=== PATIENT | male | born 1945 | race Caucasian/White ===

== ENCOUNTER → 2024-07-05 | Outpatient (CLI) | payer MEDICARE, MEDICAID, SELFPAY ==
[2024-07-05 10:17] LABS: Anion Gap 8 (7-16); BUN/Creatinine Ratio 16 Ratio (12-20); Blood Urea Nitrogen 29 mg/dL (9-23); Calcium 10.7 mg/dL (8.3-10.6); Carbon Dioxide 30.2 mMol/L (20.0-31.0); Chloride 95 mMol/L (98-107); Creatinine (Component) 1.8 mg/dL (0.6-1.3); Glucose 119 mg/dL (74-106); Osmolality,Calculated 273 (275-295); Potassium 4.4 mMol/L (3.4-5.1); Sodium 133 mMol/L (136-145); eGFR 38 See Note
== END | disposition home or self-care (01) ==
PROVIDERS: PCP Nurse Practitioner Family; Referring Provider Internal Medicine Hematology & Oncology; Visit Provider Internal Medicine Hematology & Oncology
DX: C61 Malignant neoplasm of prostate (principal)
CPT/HCPCS: 36415; 80048

== ENCOUNTER 2024-07-12 08:14 | Outpatient (RCR) | payer MEDICARE, MEDICAID, SELFPAY ==
[2024-07-07 13:56] LABS: Basophils % (Auto) 0 % (0-2.5); Eosinophils % (Auto) 0 % (0-10); Hematocrit 35.1 % (41.0-53.0); Hemoglobin 12.2 g/dL (13.5-16.0); Immature Granulocytes % (Auto) 0 % (0-0); Immature Granulocytes Auto 0.04 Thou/mm3 (0.00-0.00); Lymphocytes # (Auto) 1.7 Thou/mm3 (1.0-4.8); Lymphocytes % (Auto) 19 % (10-50); Mean Corpuscular HGB Conc 34.8 g/dl (31.0-37.0); Mean Corpuscular Hemoglobin 31.4 pg (25.0-35.0); Mean Corpuscular Volume 90 fL (80-100); Monocytes # (Auto) 0.6 Thou/mm3 (0.0-0.8); Monocytes % (Auto) 7 % (0-12); Neutrophils # (Auto) 6.8 Thou/mm3 (1.8-7.7); Neutrophils % (Auto) 74 % (37-80); Nucleated Red Blood Cell % 0 /100 WBC (0); Platelet Count 234 Thou/mm3 (140-440); RDW Standard Deviation 43.8 fL (35.1-43.9); Red Blood Count 3.89 Miln/mm3 (4.50-5.90); White Blood Count 9.3 Thou/mm3 (3.8-10.6)
[2024-07-07 14:37] LABS: Prostate Specific Antigen 0.21 ng/mL (0-4.00)
[2024-07-07 14:38] LABS: Alanine Aminotransferase 11 U/L (10-49); Albumin, Serum 4.7 gm/dL (3.4-4.8); Albumin/Globulin Ratio 1.6 (1.2-2.2); Alkaline Phosphatase 89 U/L (46-116); Anion Gap 5 (7-16); Aspartate Amino Transferase 20 U/L (0-34); BUN/Creatinine Ratio 17 Ratio (12-20); Bilirubin,Total 1.1 mg/dL (0.3-1.2); Blood Urea Nitrogen 27 mg/dL (9-23); Calcium 9.8 mg/dL (8.3-10.6); Calcium (Corrected) 9.8 mg/dL (8.5-10.1); Carbon Dioxide 28.2 mMol/L (20.0-31.0); Chloride 96 mMol/L (98-107); Creatinine (Component) 1.6 mg/dL (0.6-1.3); Globulin 2.9 gm/dL (2.3-3.5); Glucose 109 mg/dL (74-106); Osmolality,Calculated 265 (275-295); Potassium 4.4 mMol/L (3.4-5.1); Sodium 129 mMol/L (136-145); Total Protein 7.6 gm/dL (5.7-8.2); eGFR 44 See Note
== END 2024-07-23 23:59 | disposition home or self-care (01) ==
LOC: SCTC 08:14
PROVIDERS: Internal Medicine Hematology & Oncology; PCP Internal Medicine; Referring Provider Internal Medicine; Visit Provider Radiology Therapeutic Radiology
DX: Z51.11 Encounter for antineoplastic chemotherapy (principal); C61 Malignant neoplasm of prostate; C79.51 Secondary malignant neoplasm of bone; Z90.79 Acquired absence of other genital organ(s); Z92.3 Personal history of irradiation
CPT/HCPCS: 80053; 84153; 85025; 96365; 96367; 96402; 99212; 99213; J3489; J9217; G0463

== ENCOUNTER → 2024-07-26 | Outpatient (BNVA) | payer MEDICARE, MEDICAID, SELFPAY | END | disposition home or self-care (01) | PROVIDERS: PCP Nurse Practitioner Family; Referring Provider Nurse Practitioner Family; Visit Provider Physician Assistant | DX: N40.1 Benign prostatic hyperplasia with lower urinary tract symptoms (principal); C61 Malignant neoplasm of prostate | CPT/HCPCS: Q3014 ==

== ENCOUNTER → 2024-10-04 | Outpatient (CLI) | payer MEDICARE, MEDICAID, SELFPAY ==
[2024-10-04 09:29] LABS: Anion Gap 4 (7-16); BUN/Creatinine Ratio 22 Ratio (12-20); Blood Urea Nitrogen 26 mg/dL (9-23); Calcium 9.7 mg/dL (8.3-10.6); Carbon Dioxide 30.6 mMol/L (20.0-31.0); Chloride 106 mMol/L (98-107); Creatinine (Component) 1.2 mg/dL (0.6-1.3); Glucose 68 mg/dL (74-106); Osmolality,Calculated 283 (275-295); Potassium 3.7 mMol/L (3.4-5.1); Sodium 141 mMol/L (136-145); eGFR > 60 See Note
== END | disposition home or self-care (01) ==
LOC: SCTO 07:40
PROVIDERS: PCP Internal Medicine; Referring Provider Internal Medicine Hematology & Oncology; Visit Provider Internal Medicine Hematology & Oncology
DX: C61 Malignant neoplasm of prostate (principal)
CPT/HCPCS: 36415; 80048

== ENCOUNTER 2024-10-12 07:38 | Outpatient (RCR) | payer MEDICARE, MEDICAID, SELFPAY | END 2024-10-21 23:59 | disposition home or self-care (01) | LOC: SCTC 07:38 | PROVIDERS: Internal Medicine Hematology & Oncology; PCP Internal Medicine; Referring Provider Internal Medicine; Visit Provider Radiology Therapeutic Radiology | DX: Z51.11 Encounter for antineoplastic chemotherapy (principal); C61 Malignant neoplasm of prostate; C79.51 Secondary malignant neoplasm of bone; Z19.2 Hormone resistant malignancy status; Z92.3 Personal history of irradiation | CPT/HCPCS: 96365; 96402; 99213; J3489; J9217; G0463 ==

== ENCOUNTER → 2024-10-17 | Outpatient (BNVA) | payer MEDICARE, MEDICAID, SELFPAY | END | disposition home or self-care (01) | PROVIDERS: PCP Internal Medicine; Referring Provider Internal Medicine; Visit Provider Urology | DX: C61 Malignant neoplasm of prostate (principal); N13.30 Unspecified hydronephrosis; I25.10 Atherosclerotic heart disease of native coronary artery without angina pectoris; M89.8X8 Other specified disorders of bone, other site; K43.2 Incisional hernia without obstruction or gangrene; E66.9 Obesity, unspecified; Z68.28 Body mass index [BMI] 28.0-28.9, adult | CPT/HCPCS: 81003; 99212; G0463 ==

== ENCOUNTER 2024-11-03 10:41 | Outpatient (RCR) | payer MEDICARE, MEDICAID, SELFPAY ==
--- NOTE | 2024-11-27 17:13 | CTCFLWUP_ITS ---
Patient: ELIAS BUENO : 1945 Page 5 of 7 FOLLOW UP NOTE DATE OF SERVICE: 11/03/2024 NAME: ELIAS BUENO ACCOUNT: [id number] : 1945 AGE: 79 INTERVAL HISTORY: Doing well. No new PSA available. 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 PSA is slowly increasing. 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 Robotic radical prostatectomy was done on 12/06/2020. Patient had radiation therapy to the prostate bed due to rising PSA completed on 10/07/2021. PET/CT scan done on 01/10/2022 showed osteoblastic bone mets. Started on adjuvant Lupron on 09/20/2021. Increasing PSA first noted on 06/25/2023. PSA 07/07/2024 is 0.21 REASON FOR TODAY?S VISIT: Patient is known prostate cancer. Patient is doing well. PSA to have decreased to 0.20. Currently Mr. Bueno is on leuprolide, Zometa, Zytiga and prednisone. Tolerating them very well without any significant side effects. PSA has decreased to 0.20. Malignant neoplasm of prostate [ICD10] C61; Secondary malignant neoplasm of bone [ICD10] C79.51 DATE OF DIAGNOSIS: 08/12/2020 STAGE/TNM: Limited stage prostate cancer Presumed stage IV in 2021 and started on Zytiga and Lupron prednisone No biopsy done of the bone lesion to prove metastatic disease TREATMENT HISTORY: Care?Plan Start?Date Cycle Day Intent Zoledronic?Acid?4?mg 01/07/2024 1 90 Palliative HISTORY OF PRESENT ILLNESS: Elias Bueno is a 79-year-old ENG speaking male with following oncology history. 07/26/2020: Mr. Bueno had prostate biopsy done for lower urinary tract symptoms as well as an elevated PSA of 31.5. 08/30/2020: Bone scan? 12/06/2020: Mr. Bueno had robotic radical prostatectomy with extended lymph node dissection at [facility] 03/19/2021: PSA 0.46 05/07/2021: PSA 0.52 07/15/2021: PSA 0.49 08/12/2021 - 10/07/2021: Mr. Bueno underwent radiation therapy to the prostate bed 09/11/2021: PSA 0.48 09/20/2021: Mr. Bueno received first dose of adjuvant Lupron 11/26/2021: PSA less than 0.10 01/10/2022: PET CT scan done 10/02/2022: PSA less than 0.10 04/08/2023: PSA less than 0.10. 06/25/2023: PSA 0.12. 10/06/2023: PSA 0.15. 10/20/2023 PSA 0.17. 10/29/2023: PET/CT scan?no interval metastatic disease. 11/17/2023: Mr. Bueno is started on Zytiga 1 g as well as prednisone 5 mg p.o. daily along with Zometa 4 mg IV every 3 months. 01/01/2024: PSA 0.18 01/22/2024: Bone scan done 01/26/2024: CT scan of the abdomen and pelvis with IV contrast 02/16/2024: PSA 0.28. 05/16/2024: PSA 0.20. OTHER MEDICAL HISTORY/CONDITIONS: Prostate cancer - dx 07/26/20 Siezures HTN Atrial fibrillation Denies ?Clone Other Med Hx? FAMILY HISTORY: Cancer?History:?Denies Patient?denies?family?cancer?history. ?Clone Family Hx? 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 MEDICATIONS: 1. abiraterone - 500 mg 2 tab Daily 2. atorvastatin - 20 mg Daily 3. carvedilol - 3.125 mg 1 tab Twice a Day 4. Citracal - 500 mg 1 tab Twice a Day 5. cyanocobalamin (vitamin B-12) - 1,000 mcg 1 tab Daily 6. furosemide - 20 mg 1 tab Twice a Day 7. Gemtesa - 75 mg 1 tab Daily 8. Keppra - 500 mg 2 tab Twice a Day 9. losartan - 25 mg 1 tab Daily 10. prednisone - 5 mg 1 tab Daily 11. spironolactone - 25 mg 1 tab Daily 12. Vitamin D3 - 1,000 unit 1 tab Twice a Day 13. warfarin - 5 mg 1 tab Daily 14. warfarin - 4 mg 1 tab As directed?Palabra Meds? Medications Last Reconciled by Christina Garcia MA on 11/03/2024 ALLERGIES: No Known Drug Allergies REVIEW OF SYSTEMS: A complete 14-point review of systems was performed and is negative except as noted in interval history. PHYSICAL EXAMINATION:?CloneBlock PE? VITAL SIGNS: Temperature?98.8, B/P?115/76, Oxygen?Saturation?94% Weight?200?lbs (Change?since?10/12/24:?2?lbs) PAIN: 0 - No pain ECOG Performance Status: 0 - Asymptomatic and fully active EYE: Conjunctivae is white MOUTH: Oral cavity is dry. CHEST: Clear to auscultation. No wheezes or rales audible. CARDIAC: Rhythm regular, no murmurs or gallops present. ABDOMEN: Soft. No hepatomegaly. No splenomegaly. EXTREMITIES: No pedal edema or cyanosis. LABORATORY DATA: I have personally reviewed and interpreted each of the patient?s relevant lab tests, abnormal findings are below: Date 07/05/24 07/07/24 10/04/24 ??WHITE?BLOOD?COUNT?(Thou/mm3) ? 9.3 ? ??RED?BLOOD?COUNT?(Miln/mm3) ? 3.89?L ? ??HEMOGLOBIN?(gm/dl) ? 12.2?L ? ??HEMATOCRIT?(%) ? 35.1?L ? ??PLATELET?COUNT?(Thou/mm3) ? 234 ? ??NEUTROPHILS?%,?AUTO?(%) ? 74 ? ??LYMPH?%,?AUTO?(%) ? 19 ? ??NEUTROPHILS,?AUTO?(Thou/mm3) ? 6.8 ? ??GLUCOSE,RANDOM?(mg/dL) 119?H 109?H 68?L ??BLOOD?UREA?NITROGEN?(mg/dL) 29?H 27?H 26?H ??CREATININE?(mg/dL) 1.80?H 1.60?H 1.20 ??SODIUM?(mmol/L) 133?L 129?L 141 ??POTASSIUM?(mmol/L) 4.4 4.4 3.7 ??CHLORIDE?(mmol/L) 95?L 96?L 106 ??CrCl?(CandG)?(ml/min) 35.90 40.41 53.96 ??AST/SGOT?(Unit/L) ? 20 ? ??ALT/SGPT?(Unit/L) ? 11 ? ??ALKALINE?PHOSPHATASE?(Unit/L) ? 89 ? ??BILIRUBIN,?TOTAL?(mg/dL) ? 1.1 ? ??PROTEIN?TOTAL?(gm/dl) ? 7.6 ? ??ALBUMIN,?SERUM?(gm/dl) ? 4.7 ? ??GLOBULIN?(gm/dl) ? 2.9 ? ??ALBUMIN/GLOBULIN?RATIO ? 1.6 ? ??CALCIUM,?SERUM?(mg/dL) 10.7?H 9.8 9.7 ??CALCIUM?SERUM?(CORRECTED)?(mg/dL) ? 9.8 ? ASSESSMENT/PLAN: 1. Prostatic adenocarcinoma diagnosed on 08/22/2020 2. Robotic radical prostatectomy was done on 12/06/2020 3. Had radiation therapy to the prostate bed due to rising PSA completed on 10/07/[address] scan on 01/10/2022 showed osteoblastic bone lesions 5. Patient started on adjuvant Lupron on 09/20/2021 Increasing PSA first noted in June 2023 PSA has been less than 1 continue Lupron, Zytiga and prednisone for now continue Zometa 4 mg IV every 3 months. Continue Citracal. I will see him back in the clinic in 4 months with CBC, CMP as well as PSA done prior to the visit. Will do PSMA scan to see if patient have really any activity of the prostatic cancer There has never been biopsy I would like to do a bone biopsy if any active lesion Asked to see after the PSMA scan ORDERS: Order # Description [id number] Basic Metabolic Panel [id number] Lab Appointment [id number] Infusion 1 Hour [id number] Basic Metabolic Panel [id number] Lab Appointment [id number] Infusion 1 Hour [id number] Basic Metabolic Panel [id number] Lab Appointment [id number] Infusion 1 Hour [id number] Basic Metabolic Panel [id number] Lab Appointment [id number] Infusion 1 Hour [id number] Basic Metabolic Panel [id number] Lab Appointment [id number] Infusion 1 Hour [id number] Basic Metabolic Panel [id number] Lab Appointment [id number] Infusion 1 Hour [id number] Basic Metabolic Panel [id number] Lab Appointment [id number] Infusion 1 Hour [id number] Basic Metabolic Panel [id number] Lab Appointment [id number] Infusion 1 Hour [id number] Basic Metabolic Panel [id number] Lab Appointment RETURN TO CLINIC: I will see him back in the clinic in 3 months. BILLING AND COMPLIANCE: I reviewed external records from providers outside my specialty as summarized above. I spent a total of 50 minutes on this patient?s care on the day of their visit excluding time spent related to any billed procedures. This time includes time spent with the patient as well as time spent documenting in the medical record, reviewing patients records and tests, obtaining history, placing orders, communicating with other healthcare professionals, counseling the patient, family or caregiver, and/or care coordination for the diagnoses above. Electronically Signed by: Jabier Graff MD T: 5:11 PM CC: Kyaw?([email or web address]),? PCP: Jabier Graff Referring: Jabier Graff This document was completed utilizing speech recognition software. Grammatical errors, random word insertions, pronoun errors, and incomplete sentences are an occasional consequence of this system due to software limitations, ambient noise, and hardware issues. Any formal questions or concerns about the content, text or information contained within the body of this dictation should be directly addressed to the provider for clarification.
== END 2024-11-21 23:59 | disposition home or self-care (01) ==
LOC: SCTC 10:41
PROVIDERS: PCP Nurse Practitioner Family; Referring Provider Internal Medicine Hematology & Oncology; Visit Provider Internal Medicine Hematology & Oncology
DX: C61 Malignant neoplasm of prostate (principal); C79.51 Secondary malignant neoplasm of bone; Z90.79 Acquired absence of other genital organ(s); Z79.818 Long term (current) use of other agents affecting estrogen receptors and estrogen levels; Z92.3 Personal history of irradiation; Z19.2 Hormone resistant malignancy status
CPT/HCPCS: 99212; G0463

== ENCOUNTER → 2024-11-04 | Outpatient (CLI) | payer MEDICARE, MEDICAID, SELFPAY | END | disposition home or self-care (01) | PROVIDERS: PCP Nurse Practitioner Family; Referring Provider Internal Medicine Hematology & Oncology; Visit Provider Internal Medicine Hematology & Oncology | DX: C61 Malignant neoplasm of prostate (principal); C79.51 Secondary malignant neoplasm of bone | CPT/HCPCS: 36415; 84153 ==

== ENCOUNTER → 2024-12-06 | Outpatient (CLI) | payer MEDICARE, MEDICAID, SELFPAY ==
--- NOTE | 2024-12-06 12:30 | XR_ITS ---
Examination: Nuclear medicine kidney imaging flow and function multiple studies Exam date and time: December 06, 2024 1244 hours INDICATIONS: Prostatectomy 4 years ago post radiation therapy chemotherapy technique and findings: Intravenous administration 10.3 mCi technetium 99m MAG3 There are series of 117 and long-term images which demonstrate significant left hydronephrosis IMPRESSION: Limited study Significant left hydronephrosis
[2024-12-06 13:35] VITALS: BP 104/54; PULSE 83; RESP 16; O2SAT 98
[2024-12-06] MEDS: FUROSEMIDE INJ 10 MG/ML 4ML VIAL 40 MG IVP (13:35)
[2024-12-06 13:45] VITALS: BP 97/72; PULSE 80; RESP 19; O2SAT 100
== END | disposition home or self-care (01) ==
PROVIDERS: Referring Provider Urology; Visit Provider Urology
DX: N13.30 Unspecified hydronephrosis (principal)
CPT/HCPCS: 78709; A9562; J1938

== ENCOUNTER → 2024-12-27 | Outpatient (CLI) | payer MEDICARE, MEDICAID, SELFPAY | END | disposition home or self-care (01) | PROVIDERS: Referring Provider Urology; Visit Provider Urology | DX: N39.0 Urinary tract infection, site not specified (principal) | CPT/HCPCS: 87077; 87086; 87186 ==

== ENCOUNTER → 2024-12-27 | Outpatient (BNVA) | payer MEDICARE, MEDICAID, SELFPAY | END | disposition home or self-care (01) | PROVIDERS: Visit Provider Urology | DX: C61 Malignant neoplasm of prostate (principal); M89.9 Disorder of bone, unspecified; N13.30 Unspecified hydronephrosis; N39.0 Urinary tract infection, site not specified | CPT/HCPCS: 51701; 81003; 99212; J1580; G0463 ==

== ENCOUNTER 2025-01-03 13:01 | Outpatient (RCR) | payer MEDICARE, MEDICAID, SELFPAY | END 2025-01-21 23:59 | disposition home or self-care (01) | LOC: SCTC 13:01 | PROVIDERS: PCP Nurse Practitioner Family; Referring Provider Internal Medicine Hematology & Oncology; Visit Provider Internal Medicine Hematology & Oncology | DX: C61 Malignant neoplasm of prostate (principal); Z19.2 Hormone resistant malignancy status; Z90.79 Acquired absence of other genital organ(s); Z92.3 Personal history of irradiation; M89.9 Disorder of bone, unspecified | CPT/HCPCS: 96365; J3489; J7040 ==

== ENCOUNTER 2025-01-04 09:50 | Day surgery (SDC) | payer MEDICARE, MEDICAID, SELFPAY ==
[2025-01-03 11:43] VITALS: BMI 30.4
--- NOTE | 2025-01-03 12:00 | EKG_ITS ---
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
[2025-01-03 13:42] LABS: INR 1.5 (0.9-1.3); Partial Thromboplastin Time 39.1 Seconds (22.0-36.0); Prothrombin Time 15.9 Seconds (9.0-12.2)
--- NOTE | 2025-01-03 13:50 | SUR.PREOP ---
Cardiac history and records reviewed with Dr Hale.
[2025-01-03 13:51] LABS: Alanine Aminotransferase 15 U/L (10-49); Albumin, Serum 4.7 gm/dL (3.4-4.8); Albumin/Globulin Ratio 1.7 (1.2-2.2); Alkaline Phosphatase 73 U/L (46-116); Anion Gap 9 (7-16); Aspartate Amino Transferase 21 U/L (0-34); BUN/Creatinine Ratio 12 Ratio (12-20); Blood Urea Nitrogen 17 mg/dL (9-23); Calcium 9.6 mg/dL (8.3-10.6); Calcium (Corrected) 9.6 mg/dL (8.5-10.1); Carbon Dioxide 29.5 mMol/L (20.0-31.0); Chloride 96 mMol/L (98-107); Creatinine (Component) 1.4 mg/dL (0.6-1.3); Estimated Creatinine Clearance 46.8 mL/min (>60); Globulin 2.7 gm/dL (2.3-3.5); Glucose 119 mg/dL (74-106); Osmolality,Calculated 270 (275-295); Potassium 3.3 mMol/L (3.4-5.1); Sodium 134 mMol/L (136-145); Total Protein 7.4 gm/dL (5.7-8.2); eGFR 51 See Note
[2025-01-04] VITALS (7 sets, daily range): BP systolic 107–136; BP diastolic 51–83; PULSE 78–86; RESP 13–20; TEMP 36.2–36.7; O2SAT 96–100; BMI 30.2
--- NOTE | 2025-01-04 11:45 | XR_ITS ---
Examination: Fluoroscopy AP abdomen single view Date and time: January 04, 2025 1403 hours INDICATIONS: Mild to moderate right hydronephrosis on CT abdomen study January 26, 2024 TECHNIQUE AND FINDINGS: Single AP abdomen film Fluoroscopy 1 seconds radiation dose 0.128 milligray IMPRESSION: Single abdomen film
--- NOTE | 2025-01-04 14:18 | SUR.PHASEI ---
1418 Patient arrived to recovery resting comfortably in [facility], drowsy and talking with staff, on oxygen 8L via oxy mask, breathing unlabored, vital signs stable, denies pain and nasuea, 16f marino catheter in place with leg secure; draining to gravity, report received from Dr. Benedict and Abhijit RN
--- NOTE | 2025-01-04 14:21 | ESOP_ITS ---
Date of Procedure 01/04/25 Pre Op Diagnosis Metastatic prostate cancer, s/p radical prostatectomy s/p radiation treatment and hormonal manipulation, right hydronephrosis Post Op Diagnosis Same plus bladder neck contracture right ureteral orifice not identified, Procedure Cystoscopic examination Findings Bladder neck contracture right ureteral orifice not identified course of bladder trabeculation multiple shallow diverticuli Procedure Description Indication for procedure this is a 79-year-old gentleman he was diagnosed with high-grade high risk prostate cancer he had a radical prostatectomy. Patient had biochemical relapse after radiation treatment and hormonal manipulation he was recommended cystoscopy retrograde placement of right ureteral stent procedure and complications were discussed with the patient in great detail informed consent is obtained Patient was brought to the operating room in a satisfactory condition after ap propriate premedication was put on the operating table in a spine position he was appropriately identified by surgeon and operating room staff general anesthesia was given uneventfully patient was positioned in dorsolithotomy position parts were prepped and draped in the usual sterile fashion patient received preoperative antibiotics 21 cystoscope was used to do the cystourethroscopy examination of urethra was without any stricture prostatic urethra status post radical prostatectomy bladder neck revealed bladder neck contracture I was able to negotiate with the scope and dilated. Inside of the bladder in all the quadrant was carried out there were coarse bladder trabeculation with multiple shallow diverticuli. Ureteral orifice on the right side was not visible I gave methylene blue and there was no urine coming out of the right side. There was faint blue tinge urine coming out of the left ureteral orifice multiple attempts were made to identified right ureteral orifice but in the end right ureteral orifice was not identified. At this time I remove the cystoscope #16 Ortez catheter was inserted patient after having tolerated the procedure well was sent to recovery room in a satisfactory condition to be discharged home to be followed in urology office patient is going to need percutaneous nephrostomy right side and placement of ureters ureteral stent in a antegrade fashion. Anesthesia GETA Pathology / specimen None Estimated Blood Loss 2.0 Condition Stable Disposition PACU Surgeon Yanna Collins MD Surgical Staff Operation Date: 01/04/25 12:00 Case Staff Anesthesiologist: Jose Benedict
--- NOTE | 2025-01-04 15:16 | SUR.PHASEII ---
1516 Patient meets discharge criteria from recovery, awake and alert, breathing unlabored, vital signs stable, denies pain and nausea, drinking water, patient assisted with dressing into his clothing by this brief writer and his personal carer, discharge instructions and how to discontinue Ortez catheter given to patient and patients caregiver, caregiver signed discharge instructions. Patient given all his belongings prior to discharge, transported via wheelchair and left in a private vehicle.
== END 2025-01-04 15:16 | disposition home or self-care (01) ==
PROVIDERS: Anesthesiology; PCP Internal Medicine; Referring Provider Urology; Visit Provider Urology
PROC: 0TJB8ZZ Inspection of Bladder, Via Natural or Artificial Opening Endoscopic (ICD-10-PCS; CPT 52000; principal; 2025-01-04 11:45)
DX: N13.30 Unspecified hydronephrosis (principal); N32.89 Other specified disorders of bladder; Z90.79 Acquired absence of other genital organ(s); Z92.3 Personal history of irradiation; Z85.46 Personal history of malignant neoplasm of prostate; Z01.810 Encounter for preprocedural cardiovascular examination
CPT/HCPCS: 52332; 36415; 74420; 80053; 85610; 85730; 93005; A4217; A4649; C1769; C1894; C2617; J0461; J1100; J1580; J1938; J2250; J2371; J2405; J3010; J3490; Q9968

== ENCOUNTER 2025-01-07 08:22 | Emergency (ER) | payer OTHER, MEDICAID, SELFPAY ==
[2025-01-07 08:49] VITALS: BP 102/59; PULSE 80; RESP 17; TEMP 36.4; O2SAT 99
[2025-01-07 08:50] VITALS: BMI 30.2
--- NOTE | 2025-01-07 08:59 | PD.EDMALE ---
ED Male Genitalurinary RME/HPI General Chief complaint: Urogenital-Male Stated complaint: CATHETER NEEDS TO BE REMOVED PER DR GARNICA Time Seen by Provider: 01/07/25 08:42 Arrival date/time: 01/07/25 08:22 This is a 79-year-old male that comes into the emergency room with complaints of wanting urinary catheter removed. Patient states he has no complaints. Patient states he was told to come to the emergency room to have catheter removed. Related Data Home Medications ?Medication ?Instructions ?Recorded ?Confirmed furosemide 20 mg tablet (Lasix) 20 mg PO BID 04/20/20 01/03/25 warfarin 5 mg tablet (Coumadin) 5 mg PO QDAY 04/20/20 01/03/25 aspirin 81 mg tablet,delayed 81 mg PO QDAY 04/01/21 01/03/25 release atorvastatin 20 mg tablet 20 mg PO HS 04/01/21 01/03/25 carvedilol 3.125 mg tablet 3.125 mg PO BID 11/12/21 01/03/25 spironolactone 25 mg tablet 25 mg PO QDAY 12/23/22 01/03/25 vibegron 75 mg tablet (Gemtesa) 75 mg PO QDAY 09/28/23 01/03/25 abiraterone 500 mg tablet 1,000 mg PO QDAY 01/03/25 01/03/25 cholecalciferol (vitamin D3) 25 25 mcg PO QDAY 01/03/25 01/03/25 mcg (1,000 unit) tablet (Vitamin D3) enoxaparin 100 mg/mL subcutaneous 200 mg subcut QDAY 01/03/25 01/03/25 syringe (Lovenox) levetiracetam 500 mg tablet 1,000 mg PO BID 01/03/25 01/03/25 (Keppra) losartan 25 mg tablet 25 mg PO DAILY 01/03/25 01/03/25 prednisone 5 mg tablet 5 mg PO QDAY 01/03/25 01/03/25 Previous Rx's ?Medication ?Instructions ?Recorded tramadol 50 mg tablet 50 mg PO Q8H PRN pain #14 tabs 01/04/25 Allergies Allergy/AdvReac Type Severity Reaction Status Date / Time No Known Allergies Allergy Verified 01/07/25 08:27 Review of Systems Review of Systems Systems Reviewed: All systems reviewed, normal except as documented Past Medical History Past Medical History Comments PMH COMMENT: none ED Exam General General appearance: Present alert and in no apparent distress Head Head exam: Present atraumatic Eye Eye exam: Present normal appearance, PERRL and EOMI ENT ENT exam: Present normal exam, normal oropharynx and mucous membranes moist Neck Neck exam: Present normal inspection, full ROM and trachea midline Chest Chest inspection: Present normal inspection and symmetric chest wall rise Respiratory Respiratory exam: Present other (breathing even and unlabored ) Cardiovascular Cardiovascular exam: Present regular rate and other (cap refill less than 2 seconds ) Abdominal Exam Abdominal exam: Present soft Extremities Exam Extremities exam: Present normal inspection and full ROM Back Exam Back exam: Present normal inspection and full ROM Neurological Exam Neurological exam: Present alert and oriented X3 Psychiatric Psychiatric exam: Present normal affect and normal mood Skin Skin exam: Present warm, dry, intact and normal color Course Quality Measures none Vital Signs Vital signs: Vital Signs Temperature 97.5 F 01/07/25 08:49 Pulse Rate 80 01/07/25 08:49 Respiratory Rate 17 01/07/25 08:49 Blood Pressure 102/59 L 01/07/25 08:49 Pulse Oximetry (%) 99 01/07/25 08:49 Oxygen Delivery Method Room Air 01/07/25 08:49 Urogenital - Male MDM Narrative MDM Narrative:: Looked over patient's discharge paperwork and per paperwork patient is to have Marino catheter removed in 3 days. hx of Metastatic prostate cancer, s/p radical prostatectomy s/p radiation treatment and hormonal manipulation, right hydronephrosis. Patient has no other complaints at this time. Patient told to come back to the emergency room if he starts feeling like he cannot urinate. I spoke to patient at length about this. Patient verbalized understanding. Patient told to follow-up with primary provider in 1 to 2 days. Come back to the emergency room symptoms change or worsen Patient data External records reviewed:: [facility] previous records Clinical information provided by:: patient Social determinants that could affect healthcare access:: none Patient has the following chronic illnesses:: see note How is presenting disease/condition affected by chronic disease/condition?: uneffected by Evaluation data The following diagnostics were reviewed and interpreted by me:: other (specify) (none ) Lab and/or radiology exams considered but not ordered:: none Interpretation Summary: see note Medications / Prescriptions Medications or Prescriptions considered but not ordered:: none Medication administrations:: none Consultations Consultation(s) initiated? (list below): No Diagnosis Urogenital Male Differential Diagnosis: urinary tract infection and other (urinary retention, hematuria ) Most likely diagnosis given after review of the tests above:: marino cath needing to be removed s/p procedure Admission Indicated Admission indicated?: not indicated Admission Request Was there a request for admission?: No Disposition Plan Disposition Plan: Discharge Discharge Attestation Discharge Attestation: The patient and all family members were given an opportunity to ask questions and understood the discharge instructions. Discharge instructions specifically effects, indications for sooner follow up or return to the emergency department, and the expected course of current diagnosis. Patient condition: Stable Discharge Plan Plan Patient Disposition: HOME (Self Care) Patient condition on transfer: Stable Prescriptions/Referrals Prescriptions/Med Rec: No Action aspirin 81 mg tablet,delayed release (DR/EC) 81 mg PO QDAY atorvastatin 20 mg tablet 20 mg PO HS warfarin [Coumadin] 5 mg tablet 5 mg PO QDAY furosemide [Lasix] 20 mg tablet 20 mg PO BID carvedilol 3.125 mg tablet 3.125 mg PO BID Rx Instructions: must administer with a meal/food spironolactone 25 mg tablet 25 mg PO QDAY Gemtesa 75 mg tablet 75 mg PO QDAY abiraterone 500 mg tablet 1,000 mg PO QDAY Rx Instructions: must be taken on empty stomach, at least 1 hr before or 2 hrs after a meal/food prednisone 5 mg tablet 5 mg PO QDAY losartan 25 mg tablet 25 mg PO DAILY Patient Comments: TAKE 1 TABLET BY MOUTH DAILY FOR HIGH BLOOD PRESSURE levetiracetam [Keppra] 500 mg tablet 1,000 mg PO BID cholecalciferol (vitamin D3) [Vitamin D3] 25 mcg (1,000 unit) tablet 25 mcg PO QDAY enoxaparin [Lovenox] 100 mg/mL syringe 200 mg subcut QDAY tramadol 50 mg tablet 50 mg PO Q8H PRN (Reason: pain) Qty: 14 0RF Problem List Clinical Impression: Encounter for Marino catheter removal Patient/Caregiver Discharge Instructions Discharge Activity: activity as tolerated Education Materials: Marino Catheter Removal Additional Instructions: Follow up with primary provider in 1-2 days. Come back to ED if symptoms change or worsen Print Language: [place] Rican Stand Alone Forms: Tika Award Info., Patient Portal Info Letter PA/TANK REFINISHER Supervising Physician PA/TANK REFINISHER Supervising Physician: lata
== END 2025-01-07 09:15 | disposition home or self-care (01) ==
LOC: SERX 09:16
PROVIDERS: Emergency Provider Emergency Medicine; PCP Nurse Practitioner Family
DX: Z46.6 Encounter for fitting and adjustment of urinary device (principal)
CPT/HCPCS: 99282

== ENCOUNTER → 2025-02-06 | Outpatient (BNVA) | payer MEDICARE, MEDICAID, SELFPAY | END | disposition home or self-care (01) | PROVIDERS: PCP Nurse Practitioner Family; Referring Provider Nurse Practitioner Family; Visit Provider Urology | DX: C61 Malignant neoplasm of prostate (principal); N13.30 Unspecified hydronephrosis; M89.9 Disorder of bone, unspecified; Z87.440 Personal history of urinary (tract) infections; Z92.3 Personal history of irradiation; I25.10 Atherosclerotic heart disease of native coronary artery without angina pectoris; I11.0 Hypertensive heart disease with heart failure; I50.9 Heart failure, unspecified | CPT/HCPCS: 81003; 99212; G0463 ==

== ENCOUNTER 2025-02-10 10:41 | Outpatient (RCR) | payer MEDICARE, MEDICAID, SELFPAY ==
--- NOTE | 2025-02-09 11:17 | CTCFLWUP_ITS ---
Patient: ELIAS ABURTO : 1945 Page 2 of 2 FOLLOW UP NOTE DATE OF SERVICE: 02/09/2025 NAME: ELIAS ABURTO ACCOUNT: [id number] : 1945 AGE: 79 INTERVAL HISTORY: Doing well. Last PSA from October 2024 was 0.5. 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 PSA is slowly increasing. 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 Robotic radical prostatectomy was done on 12/06/2020. Patient had radiation therapy to the prostate bed due to rising PSA completed on 10/07/2021. PET/CT scan done on 01/10/2022 showed osteoblastic bone mets. Started on adjuvant Lupron on 09/20/2021. Increasing PSA first noted on 06/25/2023. PSA 07/07/2024 is 0.21 01/12/2025 PSMA PET scan showed sclerotic bone lesions involving T9 T9 T11 and L2-L3 and L4 vertebral bodies and left ischial tuberosity are identified with increased radiotracer uptake, maximum SUV SUV of up to 32.4 compatible with a sclerotic bony metastasis #2 prostatectomy is noted no abnormal focal increased radiotracer uptake in the prostatic bladder bed or pelvis #3 no evidence of PSMA avid pulmonary hepatic or alana mets #4 compression fracture of L1 and L2 vertebrae with mild vertebral body height loss and anterior wedging of unknown chronicity REASON FOR TODAY?S VISIT: Patient is known prostate cancer. Patient is doing well. PSA to have decreased to 0.20. Currently Mr. Aburto is on leuprolide, Zometa, Zytiga and prednisone. Tolerating them very well without any significant side effects. PSA has decreased to 0.20. Malignant neoplasm of prostate [ICD10] C61; Secondary malignant neoplasm of bone [ICD10] C79.51 DATE OF DIAGNOSIS: 08/12/2020 STAGE/TNM: Limited stage prostate cancer Presumed stage IV in 2021 and started on Zytiga and Lupron prednisone No biopsy done of the bone lesion to prove metastatic disease TREATMENT HISTORY: Care?Plan Start?Date Cycle Day Intent Zoledronic?Acid?4?mg 01/07/2024 1 90 Palliative Lupron?22.5?mg?q?3?mon 02/09/2025 1 90 Maintenance HISTORY OF PRESENT ILLNESS: Elias Aburto is a 79-year-old ENG speaking male with following oncology history. 07/26/2020: Mr. Aburto had prostate biopsy done for lower urinary tract symptoms as well as an elevated PSA of 31.5. 08/30/2020: Bone scan? 12/06/2020: Mr. Aburto had robotic radical prostatectomy with extended lymph node dissection at [facility] 03/19/2021: PSA 0.46 05/07/2021: PSA 0.52 07/15/2021: PSA 0.49 08/12/2021 - 10/07/2021: Mr. Aburto underwent radiation therapy to the prostate bed 09/11/2021: PSA 0.48 09/20/2021: Mr. Aburto received first dose of adjuvant Lupron 11/26/2021: PSA less than 0.10 01/10/2022: PET CT scan done 10/02/2022: PSA less than 0.10 04/08/2023: PSA less than 0.10. 06/25/2023: PSA 0.12. 10/06/2023: PSA 0.15. 10/20/2023 PSA 0.17. 10/29/2023: PET/CT scan?no interval metastatic disease. 11/17/2023: Mr. Aburto is started on Zytiga 1 g as well as prednisone 5 mg p.o. daily along with Zometa 4 mg IV every 3 months. 01/01/2024: PSA 0.18 01/22/2024: Bone scan done 01/26/2024: CT scan of the abdomen and pelvis with IV contrast 02/16/2024: PSA 0.28. 05/16/2024: PSA 0.20. OTHER MEDICAL HISTORY/CONDITIONS: Prostate cancer - dx 07/26/20 Siezures HTN Atrial fibrillation Denies FAMILY HISTORY: Cancer?History:?Denies Patient?denies?family?cancer?history. 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 abiraterone - 500 mg 2 tab Daily 2. atorvastatin - 20 mg Daily 3. carvedilol - 3.125 mg 1 tab Twice a Day 4. Citracal - 500 mg 1 tab Twice a Day 5. cyanocobalamin (vitamin B-12) - 1,000 mcg 1 tab Daily 6. furosemide - 20 mg 1 tab Twice a Day 7. Gemtesa - 75 mg 1 tab Daily 8. Keppra - 500 mg 2 tab Twice a Day 9. losartan - 25 mg 1 tab Daily 10. prednisone - 5 mg 1 tab Daily 11. spironolactone - 25 mg 1 tab Daily 12. Vitamin D3 - 1,000 unit 1 tab Twice a Day 13. warfarin - 5 mg 1 tab Daily 14. warfarin - 4 mg 1 tab As directed Medications Last Reconciled by Christina Garcia MA on 11/03/2024 ALLERGIES: No Known Drug Allergies REVIEW OF SYSTEMS: A complete 14-point review of systems was performed and is negative except as noted in interval history. PHYSICAL EXAMINATION: VITAL SIGNS: PAIN: 0 - No pain ECOG Performance Status: 0 - Asymptomatic and fully active EYE: Conjunctivae is white MOUTH: Oral cavity is dry. CHEST: Clear to auscultation. No wheezes or rales audible. CARDIAC: Rhythm regular, no murmurs or gallops present. ABDOMEN: Soft. No hepatomegaly. No splenomegaly. EXTREMITIES: No pedal edema or cyanosis. LABORATORY DATA: I have personally reviewed and interpreted each of the patient?s relevant lab tests, abnormal findings are below: Date 07/07/24 10/04/24 01/03/25 ??WHITE?BLOOD?COUNT?(Thou/mm3) 9.3 ?RED?BLOOD?COUNT?(Miln/mm3) 3.89?L ?HEMOGLOBIN?(gm/dl) 12.2?L ?HEMATOCRIT?(%) 35.1?L ?PLATELET?COUNT?(Thou/mm3) 234 ?NEUTROPHILS?%,?AUTO?(%) 74 ?LYMPH?%,?AUTO?(%) 19 ?NEUTROPHILS,?AUTO?(Thou/mm3) 6.8 ?GLUCOSE,RANDOM?(mg/dL) 109?H 68?L 119?H ??BLOOD?UREA?NITROGEN?(mg/dL) 27?H 26?H 17 ??CREATININE?(mg/dL) 1.60?H 1.20 1.40?H ??SODIUM?(mmol/L) 129?L 141 134?L ??POTASSIUM?(mmol/L) 4.4 3.7 3.3?L ??CHLORIDE?(mmol/L) 96?L 106 96?L ??CrCl?(CandG)?(ml/min) 40.41 53.96 46.36 ??AST/SGOT?(Unit/L) 20 ? 21 ??ALT/SGPT?(Unit/L) 11 ? 15 ??ALKALINE?PHOSPHATASE?(Unit/L) 89 ? 73 ??BILIRUBIN,?TOTAL?(mg/dL) 1.1 ? 1.0 ??PROTEIN?TOTAL?(gm/dl) 7.6 ? 7.4 ??ALBUMIN,?SERUM?(gm/dl) 4.7 ? 4.7 ??GLOBULIN?(gm/dl) 2.9 ? 2.7 ??ALBUMIN/GLOBULIN?RATIO 1.6 ? 1.7 ??CALCIUM,?SERUM?(mg/dL) 9.8 9.7 9.6 ??CALCIUM?SERUM?(CORRECTED)?(mg/dL) 9.8 ? 9.6 ASSESSMENT/PLAN: 1. Prostatic adenocarcinoma diagnosed on 08/22/2020 2. Robotic radical prostatectomy was done on 12/06/2020 3. Had radiation therapy to the prostate bed due to rising PSA completed on 10/07/[address] scan on 01/10/2022 showed osteoblastic bone lesions 5. Patient started on adjuvant Lupron on 09/20/2021 Increasing PSA first noted in June 2023 PSA has been less than 1 continue Lupron, Zytiga and prednisone for now continue Zometa 4 mg IV every 3 months. Continue Citracal. Patient has missed his Lupron injection which was due in December 2024 Sent a message to the pediatric clinical nurse specialist as well as informed nurses to give appointment with Mr. Aburto to start Extensively counseled patient that he needs a Lupron injection every 3 months and need appointment Patient advised to continue Zytiga prednisone and Lupron RTC in 2 months ORDERS: Order # Description [id number] Comprehensive Metabolic Panel - 12 + CBC with Auto Diff + PSA [id number] MD Follow Up 2 Months RETURN TO CLINIC: BILLING AND COMPLIANCE: I reviewed external records from providers outside my specialty as summarized above. I spent a total of 50 minutes on this patient?s care on the day of their visit excluding time spent related to any billed procedures. This time includes time spent with the patient as well as time spent documenting in the medical record, reviewing patients records and tests, obtaining history, placing orders, communicating with other healthcare professionals, counseling the patient, family or caregiver, and/or care coordination for the diagnoses above. Electronically Signed by: Jabier Graff MD T: 11:14 AM CC: Kyaw?([email or web address]),? PCP: Shantelle Beck Referring: Shantelle Beck This document was completed utilizing speech recognition software. Grammatical errors, random word insertions, pronoun errors, and incomplete sentences are an occasional consequence of this system due to software limitations, ambient noise, and hardware issues. Any formal questions or concerns about the content, text or information contained within the body of this dictation should be directly addressed to the provider for clarification.
== END 2025-02-20 23:59 | disposition home or self-care (01) ==
LOC: SCTC 10:41
PROVIDERS: PCP Nurse Practitioner Family; Referring Provider Nurse Practitioner Family; Visit Provider Internal Medicine Hematology & Oncology
DX: Z51.11 Encounter for antineoplastic chemotherapy (principal); C61 Malignant neoplasm of prostate; C79.51 Secondary malignant neoplasm of bone; Z19.2 Hormone resistant malignancy status; Z90.79 Acquired absence of other genital organ(s); Z92.3 Personal history of irradiation
CPT/HCPCS: 96402; 99212; J9217; G0463

== ENCOUNTER → 2025-03-31 | Outpatient (CLI) | payer MEDICARE, MEDICAID, SELFPAY ==
[2025-03-31 10:02] LABS: Basophils # (Auto) 0.1 Thou/mm3 (0.0-0.2); Basophils % (Auto) 1 % (0-2.5); Eosinophils # (Auto) 0.2 Thou/mm3 (0.0-0.5); Eosinophils % (Auto) 3 % (0-10); Hematocrit 33.6 % (41.0-53.0); Hemoglobin 11.3 g/dL (13.5-16.0); Immature Granulocytes Auto 0.02 Thou/mm3 (0.00-0.00); Lymphocytes # (Auto) 1.2 Thou/mm3 (1.0-4.8); Lymphocytes % (Auto) 16 % (10-50); Mean Corpuscular HGB Conc 33.6 g/dl (31.0-37.0); Mean Corpuscular Hemoglobin 29.5 pg (25.0-35.0); Mean Corpuscular Volume 88 fL (80-100); Monocytes # (Auto) 0.7 Thou/mm3 (0.0-0.8); Monocytes % (Auto) 10 % (0-12); Neutrophils # (Auto) 5.0 Thou/mm3 (1.8-7.7); Neutrophils % (Auto) 70 % (37-80); Nucleated Red Blood Cell # 0.00 Thou/mm3 (0.00-0.00); Nucleated Red Blood Cell % 0 /100 WBC (0); Platelet Count 287 Thou/mm3 (140-440); RDW Standard Deviation 43.6 fL (35.1-43.9); Red Blood Count 3.83 Miln/mm3 (4.50-5.90); White Blood Count 7.2 Thou/mm3 (3.8-10.6)
[2025-03-31 10:17] LABS: Alanine Aminotransferase 11 U/L (10-49); Albumin, Serum 4.4 gm/dL (3.4-4.8); Albumin/Globulin Ratio 1.8 (1.2-2.2); Alkaline Phosphatase 97 U/L (46-116); Anion Gap 12 (7-16); Aspartate Amino Transferase 17 U/L (0-34); BUN/Creatinine Ratio 13 Ratio (12-20); Bilirubin,Total 0.8 mg/dL (0.3-1.2); Blood Urea Nitrogen 19 mg/dL (9-23); Calcium 9.8 mg/dL (8.3-10.6); Calcium (Corrected) 9.8 mg/dL (8.5-10.1); Carbon Dioxide 26.9 mMol/L (20.0-31.0); Chloride 100 mMol/L (98-107); Creatinine (Component) 1.5 mg/dL (0.6-1.3); Globulin 2.4 gm/dL (2.3-3.5); Glucose 99 mg/dL (74-106); Osmolality,Calculated 279 (275-295); Potassium 3.9 mMol/L (3.4-5.1); Sodium 139 mMol/L (136-145); Total Protein 6.8 gm/dL (5.7-8.2); eGFR 47 See Note
[2025-03-31 10:19] LABS: Prostate Specific Antigen 3.21 ng/mL (0-4.00)
== END | disposition home or self-care (01) ==
PROVIDERS: PCP Nurse Practitioner Family; Referring Provider Internal Medicine Hematology & Oncology; Visit Provider Internal Medicine Hematology & Oncology
DX: C61 Malignant neoplasm of prostate (principal); C79.51 Secondary malignant neoplasm of bone
CPT/HCPCS: 36415; 80053; 84153; 85025

== ENCOUNTER 2025-04-13 13:58 | Outpatient (RCR) | payer MEDICARE, MEDICAID, SELFPAY ==
--- NOTE | 2025-04-16 23:32 | CTCFLWUP_ITS ---
Patient: ELIAS BUENO : 1945 Page 5 of 7 FOLLOW UP NOTE DATE OF SERVICE: 04/11/2025 NAME: ELIAS BUENO ACCOUNT: [id number] : 1945 AGE: 79 INTERVAL HISTORY: Doing well. Last PSA from October 2024 was 0.5. 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 PSA is slowly increasing. 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 Robotic radical prostatectomy was done on 12/06/2020. Patient had radiation therapy to the prostate bed due to rising PSA completed on 10/07/2021. PET/CT scan done on 01/10/2022 showed osteoblastic bone mets. Started on adjuvant Lupron on 09/20/2021. Increasing PSA first noted on 06/25/2023. PSA 07/07/2024 is 0.21 01/12/2025 PSMA PET scan showed sclerotic bone lesions involving T9 T9 T11 and L2-L3 and L4 vertebral bodies and left ischial tuberosity are identified with increased radiotracer uptake, maximum SUV SUV of up to 32.4 compatible with a sclerotic bony metastasis #2 prostatectomy is noted no abnormal focal increased radiotracer uptake in the prostatic bladder bed or pelvis #3 no evidence of PSMA avid pulmonary hepatic or alana mets #4 compression fracture of L1 and L2 vertebrae with mild vertebral body height loss and anterior wedging of unknown chronicity REASON FOR TODAY?S VISIT: Patient is known prostate cancer. Patient is doing well. PSA to have decreased to 0.20. Currently Mr. Bueno is on leuprolide, Zometa, Zytiga and prednisone. Tolerating them very well without any significant side effects. PSA has decreased to 0.20. 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 07/26/2020: Mr. Bueno had prostate biopsy done for lower urinary tract symptoms as well as an elevated PSA of 31.5. 08/30/2020: Bone scan? 12/06/2020: Mr. Bueno had robotic radical prostatectomy with extended lymph node dissection at [facility] 03/19/2021: PSA 0.46 05/07/2021: PSA 0.52 07/15/2021: PSA 0.49 08/12/2021 - 10/07/2021: Mr. Bueno underwent radiation therapy to the prostate bed 09/11/2021: PSA 0.48 09/20/2021: Mr. Bueno received first dose of adjuvant Lupron 11/26/2021: PSA less than 0.10 01/10/2022: PET CT scan done 10/02/2022: PSA less than 0.10 04/08/2023: PSA less than 0.10. 06/25/2023: PSA 0.12. 10/06/2023: PSA 0.15. 10/20/2023 PSA 0.17. 10/29/2023: PET/CT scan?no interval metastatic disease. 11/17/2023: Mr. Bueno is started on Zytiga 1 g as well as prednisone 5 mg p.o. daily along with Zometa 4 mg IV every 3 months. 01/01/2024: PSA 0.18 01/22/2024: Bone scan done 01/26/2024: CT scan of the abdomen and pelvis with IV contrast 02/16/2024: PSA 0.28. 05/16/2024: PSA 0.20. OTHER MEDICAL HISTORY/CONDITIONS: Prostate cancer - dx 07/26/20 Siezures HTN Atrial fibrillation Denies FAMILY HISTORY: Cancer?History:?Denies Patient?denies?family?cancer?history. 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 abiraterone - 500 mg 2 tab Daily 2. atorvastatin - 20 mg Daily 3. carvedilol - 3.125 mg 1 tab Twice a Day 4. Citracal - 500 mg 1 tab Twice a Day 5. cyanocobalamin (vitamin B-12) - 1,000 mcg 1 tab Daily 6. furosemide - 20 mg 1 tab Twice a Day 7. Gemtesa - 75 mg 1 tab Daily 8. Keppra - 500 mg 2 tab Twice a Day 9. losartan - 25 mg 1 tab Daily 10. midodrine - 10 mg 1 tab As directed 11. prednisone - 5 mg 1 tab Daily 12. spironolactone - 25 mg 1 tab Daily 13. Vitamin D3 - 1,000 unit 1 tab Twice a Day 14. warfarin - 5 mg 1 tab Daily 15. warfarin - 4 mg 1 tab As directed Medications Last Reconciled by Tory Falcon MA on 04/13/2025 ALLERGIES: No Known Drug Allergies REVIEW OF SYSTEMS: A complete 14-point review of systems was performed and is negative except as noted in interval history. PHYSICAL EXAMINATION: VITAL SIGNS: Temperature?98, B/P?140/75 Weight?194?lbs (Change?since?04/03/25:?-3.4?lbs) PAIN: 0 - No pain ECOG Performance Status: 2 - Symptomatic; ambulatory; capable of self-care; >50% of waking hrs. not in bed EYE: Conjunctivae is white MOUTH: Oral cavity is dry. CHEST: Clear to auscultation. No wheezes or rales audible. CARDIAC: Rhythm regular, no murmurs or gallops present. ABDOMEN: Soft. No hepatomegaly. No splenomegaly. EXTREMITIES: No pedal edema or cyanosis. LABORATORY DATA: I have personally reviewed and interpreted each of the patient?s relevant lab tests, abnormal findings are below: Date 03/31/25 04/13/25 ??WHITE?BLOOD?COUNT?(Thou/mm3) 7.2 8.4 ? ??RED?BLOOD?COUNT?(Miln/mm3) 3.83?L 3.82?L ? ??HEMOGLOBIN?(gm/dl) 11.3?L 11.3?L ? ??HEMATOCRIT?(%) 33.6?L 34.1?L ? ??PLATELET?COUNT?(Thou/mm3) 287 266 ? ??NEUTROPHILS?%,?AUTO?(%) 70 79 ? ??LYMPH?%,?AUTO?(%) 16 15 ? ??NEUTROPHILS,?AUTO?(Thou/mm3) 5.0 6.7 ? ??GLUCOSE,RANDOM?(mg/dL) ? 163?H ? ??BLOOD?UREA?NITROGEN?(mg/dL) ? 25?H ? ??CREATININE?(mg/dL) ? 1.80?H ? ??SODIUM?(mmol/L) ? 136 ? ??POTASSIUM?(mmol/L) ? 3.4 ? ??CHLORIDE?(mmol/L) ? 98 ? ??CrCl?(CandG)?(ml/min) ? 35.55 ? ??AST/SGOT?(Unit/L) ? 22 ? ??ALT/SGPT?(Unit/L) ? 14 ? ??ALKALINE?PHOSPHATASE?(Unit/L) ? 108 ? ??BILIRUBIN,?TOTAL?(mg/dL) ? 0.6 ? ??PROTEIN?TOTAL?(gm/dl) ? 6.8 ? ??ALBUMIN,?SERUM?(gm/dl) ? 4.3 ? ??GLOBULIN?(gm/dl) ? 2.5 ? ??ALBUMIN/GLOBULIN?RATIO ? 1.7 ? ??CALCIUM,?SERUM?(mg/dL) ? 10.1 ? ??CALCIUM?SERUM?(CORRECTED)?(mg/dL) ? 10.1 ? ??MAGNESIUM?(mg/dL) ? ? 2.2 ASSESSMENT/PLAN: 1. Prostatic adenocarcinoma diagnosed on 08/22/2020 2. Robotic radical prostatectomy was done on 12/06/2020 3. Had radiation therapy to the prostate bed due to rising PSA completed on 10/07/[address] scan on 01/10/2022 showed osteoblastic bone lesions 5. Patient started on adjuvant Lupron on 09/20/2021 Increasing PSA first noted in June 2023 PSA has been less than 1 continue Lupron, Zytiga and prednisone for now continue Zometa 4 mg IV every 3 months. Continue Citracal. Patient has missed his Lupron injection which was due in December 2024 Sent a message to the clinical nursing professor as well as informed nurses to give appointment with Mr. Bueno to start Extensively counseled patient that he needs a Lupron injection every 3 months and need appointment Patient advised to continue Zytiga prednisone and Lupron RTC in 2 months ORDERS: Order # Description [id number] Comprehensive Metabolic Panel - 12 + CBC with Auto Diff + PSA [id number] Bone Scan, Whole body [id number] MD Follow Up 4 Week RETURN TO CLINIC: I reviewed the diagnosis, prognosis, and recommended treatment/procedure options with the patient (and/or their legal sales utility representative), including the potential benefits, risks, side effects and alternative therapies. We also discussed the option of no treatment and the possibility of clinical trial participation, if applicable. All questions were addressed, and they demonstrated understanding. They provided informed consent to proceed with the proposed plan of care. BILLING AND COMPLIANCE: I reviewed external records from providers outside my specialty as summarized above. I spent a total of 50 minutes on this patient?s care on the day of their visit excluding time spent related to any billed procedures. This time includes time spent with the patient as well as time spent documenting in the medical record, reviewing patients records and tests, obtaining history, placing orders, communicating with other healthcare professionals, counseling the patient, family or caregiver, and/or care coordination for the diagnoses above. Electronically Signed by: {Object.Sanct_ID*[email or web address]@M}, {Object.Sanct_ID*PnP.Suffix@U} D: {Object.Sanct_Date} T: {Object.Sanct_Time} CC: Vinnie?Lillie?(pixleycl),? PCP: Shantelle Beck Referring: Shantelle Beck This document was completed utilizing speech recognition software. Grammatical errors, random word insertions, pronoun errors, and incomplete sentences are an occasional consequence of this system due to software limitations, ambient noise, and hardware issues. Any formal questions or concerns about the content, text or information contained within the body of this dictation should be directly addressed to the provider for clarification.
== END 2025-04-23 23:59 | disposition home or self-care (01) ==
LOC: SCTC 13:58
PROVIDERS: PCP Nurse Practitioner Family; Referring Provider Nurse Practitioner Family; Visit Provider Internal Medicine Hematology & Oncology
DX: C61 Malignant neoplasm of prostate (principal); C79.51 Secondary malignant neoplasm of bone; Z19.2 Hormone resistant malignancy status; Z90.79 Acquired absence of other genital organ(s); Z79.818 Long term (current) use of other agents affecting estrogen receptors and estrogen levels; Z92.3 Personal history of irradiation
CPT/HCPCS: 96361; 96365; 99212; J3489; J7030; G0463

== ENCOUNTER 2025-04-13 15:24 | Emergency (ER) | payer MEDICARE, MEDICAID, SELFPAY ==
[2025-04-13 15:26] VITALS: BMI 28.7
[2025-04-13 15:53] VITALS: BP 85/50; BP 91/46; PULSE 60; RESP 18; TEMP 36.6; O2SAT 95
--- NOTE | 2025-04-13 15:57 | XR_ITS ---
Examination: PA lateral chest 2 views. TECHNIQUE: Upright PA and lateral chest 2 views. Date and time: April 13, 2025, 1627 hours. INDICATIONS: Popping shortness of breath beginning 2 days ago. FINDINGS: Mild enlargement cardiac contour Transcatheter aortic valve Probable mitral valve ring. Periventricular cardiac leads satisfactory position. Mild vascular congestion. No lobar pneumonia or pulmonary edema. IMPRESSION: Mild vascular congestion No lobar pneumonia or pulmonary edema.
--- NOTE | 2025-04-13 15:57 | EKG_ITS ---
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
--- NOTE | 2025-04-13 16:01 | PD.EDRME ---
Rapid Medical Screening Exam RME Arrival date/time: 04/13/25 15:24 79-year-old male was seen in the cancer treatment center today and was referred to the ER for hypotension Chief Complaint: General Adult/Misc Complain Vital signs: Vital Signs Temperature 97.9 F 04/13/25 15:53 Pulse Rate 60 04/13/25 15:53 Respiratory Rate 18 04/13/25 15:53 Blood Pressure 85/50 L 04/13/25 15:53 Pulse Oximetry (%) 95 04/13/25 15:53 Oxygen Delivery Method Room Air 04/13/25 15:53
[2025-04-13 16:29] LABS: Lactate (Lactic Acid) 2.2 mMol/L (0.4-2.0)
[2025-04-13 16:38] LABS: Basophils # (Auto) 0.0 Thou/mm3 (0.0-0.2); Basophils % (Auto) 0 % (0-2.5); Eosinophils # (Auto) 0.0 Thou/mm3 (0.0-0.5); Eosinophils % (Auto) 0 % (0-10); Hematocrit 34.1 % (41.0-53.0); Hemoglobin 11.3 g/dL (13.5-16.0); Immature Granulocytes Auto 0.03 Thou/mm3 (0.00-0.00); Lymphocytes # (Auto) 1.2 Thou/mm3 (1.0-4.8); Lymphocytes % (Auto) 15 % (10-50); Mean Corpuscular HGB Conc 33.1 g/dl (31.0-37.0); Mean Corpuscular Hemoglobin 29.6 pg (25.0-35.0); Mean Corpuscular Volume 89 fL (80-100); Monocytes # (Auto) 0.5 Thou/mm3 (0.0-0.8); Monocytes % (Auto) 6 % (0-12); Neutrophils # (Auto) 6.7 Thou/mm3 (1.8-7.7); Neutrophils % (Auto) 79 % (37-80); Nucleated Red Blood Cell # 0.00 Thou/mm3 (0.00-0.00); Nucleated Red Blood Cell % 0 /100 WBC (0); Platelet Count 266 Thou/mm3 (140-440); RDW Standard Deviation 43.9 fL (35.1-43.9); Red Blood Count 3.82 Miln/mm3 (4.50-5.90); White Blood Count 8.4 Thou/mm3 (3.8-10.6)
[2025-04-13 16:59] LABS: Alanine Aminotransferase 14 U/L (10-49); Albumin, Serum 4.3 gm/dL (3.4-4.8); Albumin/Globulin Ratio 1.7 (1.2-2.2); Alkaline Phosphatase 108 U/L (46-116); Anion Gap 13 (7-16); Aspartate Amino Transferase 22 U/L (0-34); BUN/Creatinine Ratio 14 Ratio (12-20); Bilirubin,Total 0.6 mg/dL (0.3-1.2); Blood Urea Nitrogen 25 mg/dL (9-23); Calcium 10.1 mg/dL (8.3-10.6); Calcium (Corrected) 10.1 mg/dL (8.5-10.1); Carbon Dioxide 24.8 mMol/L (20.0-31.0); Chloride 98 mMol/L (98-107); Creatinine (Component) 1.8 mg/dL (0.6-1.3); Estimated Creatinine Clearance 37.7 mL/min (>60); Globulin 2.5 gm/dL (2.3-3.5); Glucose 163 mg/dL (74-106); Osmolality,Calculated 280 (275-295); Potassium 3.4 mMol/L (3.4-5.1); Procalcitonin 0.05 ng/ml (0.0-0.49); Sodium 136 mMol/L (136-145); Total Protein 6.8 gm/dL (5.7-8.2); Troponin I < 0.020 ng/mL (0.0-0.045); eGFR 38 See Note
[2025-04-13 17:08] LABS: Collection Type, Urine Clean Catch
[2025-04-13 17:51] LABS: Amorphous Crystals,Urine Present (Absent); Bacteria,Urine Rare; Bilirubin,Urine Negative (Negative); Blood,Urine Trace (Negative); Calcium Oxalate Crystals,Urine 2+; Color,Urine Yellow (Lt Yel-Yel); Glucose, Urine Negative (Negative); Ketones,Urine Negative (Negative); Leukocyte Esterase,Urine Negative (Negative); Nitrite,Urine Negative (Negative); PH,Urine 6.0 (5.0-7.0); Protein,Urine Trace (Neg - Trace); RBC,Urine 5 /hpf (0-3); Specific Gravity,Urine 1.012 (1.001-1.035); Squamous Epithelial Cell,Urine 1 /hpf (0-5); Urobilinogen,Urine Negative mg/dL (0.0-1.0); WBC,Urine 6 /hpf (0-5)
[2025-04-13 18:02] LABS: Clarity,Urine Hazy (Clear/Hazy)
[2025-04-13 18:20] VITALS: BP 103/54; PULSE 64; RESP 19; TEMP 36.3; O2SAT 97
[2025-04-13 19:29] LABS: Reflex Lactate? Y
[2025-04-13 19:41] VITALS: BP 110/68; PULSE 71; RESP 17; O2SAT 96
--- NOTE | 2025-04-13 19:46 | PD.EDDIZZY ---
ED Dizzyness RME/HPI General Chief Complaint: General Adult/Misc Complain Stated Complaint: SENT BY [facility] DUE TO LOW BP Time Seen by Provider: 04/13/25 18:06 Arrival date/time: 04/13/25 15:24 RME / HPI RME / HPI Narrative: 04/13/25 15:24 79-year-old male was seen in the cancer treatment center today and was referred to the ER for hypotension See [facility] for Dr. Zuniga's HPI Documentation. Related Data Home Medications ?Medication ?Instructions ?Recorded ?Confirmed furosemide 20 mg tablet (Lasix) 20 mg PO BID 04/20/20 02/06/25 warfarin 5 mg tablet (Coumadin) 5 mg PO QDAY 04/20/20 02/06/25 aspirin 81 mg tablet,delayed 81 mg PO QDAY 04/01/21 02/06/25 release atorvastatin 20 mg tablet 20 mg PO HS 04/01/21 02/06/25 carvedilol 3.125 mg tablet 3.125 mg PO BID 11/12/21 02/06/25 spironolactone 25 mg tablet 25 mg PO QDAY 12/23/22 02/06/25 vibegron 75 mg tablet (Gemtesa) 75 mg PO QDAY 09/28/23 02/06/25 abiraterone 500 mg tablet 1,000 mg PO QDAY 01/03/25 02/06/25 cholecalciferol (vitamin D3) 25 25 mcg PO QDAY 01/03/25 02/06/25 mcg (1,000 unit) tablet (Vitamin D3) enoxaparin 100 mg/mL subcutaneous 200 mg subcut QDAY 01/03/25 02/06/25 syringe (Lovenox) levetiracetam 500 mg tablet 1,000 mg PO BID 01/03/25 02/06/25 (Keppra) losartan 25 mg tablet 25 mg PO DAILY 01/03/25 02/06/25 prednisone 5 mg tablet 5 mg PO QDAY 01/03/25 02/06/25 Previous Rx's ?Medication ?Instructions ?Recorded tramadol 50 mg tablet 50 mg PO Q8H PRN pain #14 tabs 01/04/25 cefdinir 300 mg capsule 300 mg PO BID #14 caps 04/14/25 ondansetron 4 mg disintegrating 4 mg PO TID PRN nausea and 04/14/25 tablet vomiting 30 days #10 tabs Allergies Allergy/AdvReac Type Severity Reaction Status Date / Time No Known Allergies Allergy Verified 04/13/25 15:28 Review of Systems Review of Systems Systems Reviewed: All systems reviewed, normal except as documented Past Medical History Past Medical History CARDIAC: Positive Cardiac Disorders, Coronary Artery Disease, Congestive Heart Failure, Valvular Heart Disease, Cardiomyopathy and Hypertension GASTROINTESTINAL: Positive Gastrointestinal Disorders and Obesity GENITOURINARY: Positive Genitourinary Disorders, Kidney Stones and Prostate Cancer HEMATOLOGIC: Positive Blood Disorders and Anemia OTHER HISTORY: Positive Hospitalization, Radiation Therapy, Chicken Pox, Cancer and Prostate Cancer Surgical History SURGICAL: Positive Valve Replacement (Mitral mechanical, TAVR), Cardiac Catheterization and Auto Implanted Cardiovert Defib ED Exam Narrative Physical exam: See MDM for Dr. Zuniga's Physical Exam Documentation. Course Course Course Narrative: CXR was ordered for determining the etiology of shortness of breath. Quality Measures none Orders Category Date Time Status Bedside COVID-19 Antigen Test NOW Care 04/13/25 15:57 Completed Bedside Influenza A&B Antigen Test NOW Care 04/13/25 15:57 Completed EKG (ED ONLY) *Do not use* NOW Care 04/13/25 15:57 Completed Saline [Insert IV] NOW Care 04/13/25 19:[address] head/brain wo con Stat Exams 04/13/25 19:50 Completed EKG (ED Only) Stat Exams 04/13/25 15:57 Draft XR chest 2V Stat Exams 04/13/25 15:57 Completed Blood Culture (Lab) Stat Lab 04/13/25 16:08 Results CBC Stat Lab 04/13/25 16:08 Completed CRP [C-Reactive Protein] Stat Lab 04/13/25 20:38 Completed Comprehensive Metabolic Panel Stat Lab 04/13/25 16:08 Completed ESR [Sed Rate (ESR)] Stat Lab 04/13/25 20:38 Completed Lactate (Lactic Acid) Stat Lab 04/13/25 16:08 Completed Lactic Acid, 3 HR Stat Lab 04/13/25 22:12 Completed Magnesium Stat Lab 04/13/25 20:38 Completed Procalcitonin Stat Lab 04/13/25 16:08 Completed Troponin I Stat Lab 04/13/25 16:08 Completed Urinalysis Stat Lab 04/13/25 16:58 Completed Urine Culture Stat Lab 04/13/25 16:58 Completed Ondansetron Inj [Zofran Inj] Med 04/13/25 19:49 Discontinued 4 mg IVP X1 ONE Sodium Chloride 0.9% 1000 ml [Ns] 1,000 ml Med 04/13/25 19:49 Discontinued IV 999 mls/hr cefTRIAXone/D5w 1gm IV premix [Rocephin/D5w 1gm IV Med 04/13/25 19:49 Discontinued premix] 1 gm in 50 ml IV X1 Vital Signs Vital signs: Vital Signs Temperature 97.9 F 04/13/25 15:53 Pulse Rate 60 04/13/25 15:53 Respiratory Rate 18 04/13/25 15:53 Blood Pressure 85/50 L 04/13/25 15:53 Pulse Oximetry (%) 95 04/13/25 15:53 Oxygen Delivery Method Room Air 04/13/25 15:53 Dizziness MDM Narrative MDM Narrative:: Scribe Attestation: I, Tia Kolb, am scribing for and in the presence of Dr. Zuniga. This section includes all my notes and documentations, including HPI, PE, and ED course. Chema Zuniga MD HPI: 79 y/o male with Hx of Prostate CA here with low blood pressure reading during routine visit with Dr. Dajuan artis PTA. Denies fever, cough, body aches, vomiting, shortness of breath, and abdominal pain. No other complaints. ROS: All negative except as documented in HPI. General:? Alert and oriented.? No acute distress.?? Eyes:? Conjunctivae and lids clear.? EOMI.? PERRL. ENT:? No nasal congestion.? Neck:? Supple.? No carotid bruit.? No JVD.?? Heart:? RRR.? Lungs:? No respiratory distress.? Good air movement.? No rhonchi, wheezing, rales.?? Abdomen:? Soft and nontender.? Normal bowel sounds.? No distension.? No rebound or guarding.?? Back:? No CVA tenderness.?? Legs:? No clubbing, cyanosis, edema.? Skin:? Warm and dry.?? Neuro:? Alert and oriented X 3.? Cranial Nerves II-XII grossly intact.? No peripheral motor deficits. I reviewed all diagnostic test results: My interpretation of the EKG is atrial fibrillation with no RVR. My interpretation of the chest x-ray is NAD. My review of the Head/Brain CT report is: NAD. Blood tests unremarkable. US showed RBC and WBC and bacteria. Covid/Influenza: Negative. At this point, diagnoses include: UTI. Treatment here included: Rocephin 1 G, IVF, Zofran 4 mg. Recommended outpatient care. Based on my best medical judgment, made decision no further evaluation or treatment indicated at this time. Patient understands and agrees to the discharge instructions customized and printed, see below. Discharge instructions from Dr. Zuniga: 1. After evaluation, you have UTI (see attached handout).? There is no kidney infection or kidney stone or blood poisoning. 2. Take cefdinir to kill the germs causing the infection. 3. For good hydration, increase oral fluid and maintain clear urine. If dark or yellow, increase oral fluid. Zofran for nausea/vomiting.? 4. See a private doctor on 04/17/2025 for recheck.? Ask to check the final urine culture results from today to make sure cefdinir doesn't need to be changed due to resistance. 5. Seek immediate medical care with worsening, fever, or with any concerns. Chema Zuniga MD Patient data External records reviewed:: [facility] previous records (Reviewed prior ED records from 01/07/25. Patient was seen for Encounter for Ortez catheter removal.) Clinical information provided by:: patient Social determinants that could affect healthcare access:: none Patient has the following chronic illnesses:: Coronary Artery Disease, Congestive Heart Failure, Valvular Heart Disease, Cardiomyopathy, Hypertension, Obesity, Kidney Stones, Prostate Cancer, Anemia How is presenting disease/condition affected by chronic disease/condition?: exacerbated by Evaluation data The following diagnostics were reviewed and interpreted by me:: lab results, radiology exam(s) and EKG tracing(s) Lab and/or radiology exams considered but not ordered:: None Interpretation Summary: I reviewed all diagnostic test results: My interpretation of the EKG is atrial fibrillation with no RVR. My interpretation of the chest x-ray is NAD. My review of the Head/Brain CT report is: NAD. Blood tests unremarkable. US showed RBC and WBC and bacteria. Covid/Influenza: Negative. Medications / Prescriptions Medications or Prescriptions considered but not ordered:: None Medication administrations:: Medication Administration History Discontinued Medications Ceftriaxone Sodium/Dextrose (Rocephin/D5w 1gm Iv Premix) 1 gm in 50 mls @ 100 mls/hr IV X1 ONE Stop: 04/13/25 20:18 Last Infusion: 04/13/25 21:28 Dose: Infused Documented By: Admin: 04/13/25 20:37 Dose: 100 mls/hr Documented By: HEMAL Sodium Chloride (Ns) 1,000 mls @ 999 mls/hr IV .Q1H1M ONE Stop: 04/13/25 20:49 Last Infusion: 04/13/25 22:42 Dose: Infused Documented By: Admin: 04/13/25 20:36 Dose: 999 mls/hr Documented By: HEMAL Ondansetron HCl (Ondansetron Inj 2 Mg/Ml Inj 2 Ml) 4 mg IVP X1 ONE; Protocol Stop: 04/13/25 19:50 Last Admin: 04/13/25 20:14 Dose: Not Given Documented By: HEMAL Non-Admin Reason: Patient Refused Rocephin 1 G, IVF, Zofran 4 mg Consultations Consultation(s) initiated? (list below): No Diagnosis Dizziness Differential Diagnosis: adverse reaction to drug, benign paroxysmal positional vertigo, orthostatic hypotension, vertebral basilar insufficiency, cerebrovascular accident, acute vestibular neuronitis, transient cerebral ischemia and other (UTI, Pneumonia, Sepsis ) Most likely diagnosis given after review of the tests above:: UTI Admission Indicated Admission indicated?: not indicated Explain why admission is indicated or not indicated:: With significant improvement and no condition needing emergent intervention, there was no indication for admission. Admission Request Was there a request for admission?: No Disposition Plan Disposition Plan: Discharge Discharge Attestation Discharge Attestation: The patient and all family members were given an opportunity to ask questions and understood the discharge instructions. Discharge instructions specifically effects, indications for sooner follow up or return to the emergency department, and the expected course of current diagnosis. Patient condition: Stable Discharge Plan Plan Patient Disposition: HOME (Self Care) Prescriptions/Referrals Prescriptions/Med Rec: New ondansetron 4 mg tablet,disintegrating 4 mg PO TID PRN (Reason: nausea and vomiting) 30 Days Qty: 10 0RF cefdinir 300 mg capsule 300 mg PO BID Qty: 14 0RF No Action aspirin 81 mg tablet,delayed release (DR/EC) 81 mg PO QDAY atorvastatin 20 mg tablet 20 mg PO HS warfarin [Coumadin] 5 mg tablet 5 mg PO QDAY furosemide [Lasix] 20 mg tablet 20 mg PO BID carvedilol 3.125 mg tablet 3.125 mg PO BID Rx Instructions: must administer with a meal/food spironolactone 25 mg tablet 25 mg PO QDAY Gemtesa 75 mg tablet 75 mg PO QDAY abiraterone 500 mg tablet 1,000 mg PO QDAY Rx Instructions: must be taken on empty stomach, at least 1 hr before or 2 hrs after a meal/food prednisone 5 mg tablet 5 mg PO QDAY losartan 25 mg tablet 25 mg PO DAILY Patient Comments: TAKE 1 TABLET BY MOUTH DAILY FOR HIGH BLOOD PRESSURE levetiracetam [Keppra] 500 mg tablet 1,000 mg PO BID cholecalciferol (vitamin D3) [Vitamin D3] 25 mcg (1,000 unit) tablet 25 mcg PO QDAY enoxaparin [Lovenox] 100 mg/mL syringe 200 mg subcut QDAY tramadol 50 mg tablet 50 mg PO Q8H PRN (Reason: pain) Qty: 14 0RF Referrals: Shantelle Beck, MATERIAL EXPEDITOR [Primary Care Provider] - In 1 week Problem List Clinical Impression: UTI (urinary tract infection) Patient/Caregiver Discharge Instructions Discharge Activity: activity as tolerated Education Materials: ED Bladder Infection, Male (Adult) Additional Instructions: Discharge instructions from Dr. Zuniga: 1. After evaluation, you have UTI (see attached handout).? There is no kidney infection or kidney stone or blood poisoning. 2. Take cefdinir to kill the germs causing the infection. 3. For good hydration, increase oral fluid and maintain clear urine. If dark or yellow, increase oral fluid. Zofran for nausea/vomiting.? 4. See a private doctor on 04/17/2025 for recheck.? Ask to check the final urine culture results from today to make sure cefdinir doesn't need to be changed due to resistance. 5. Seek immediate medical care with worsening, fever, or with any concerns. Print Language: Macedonian Stand Alone Forms: Tika Award Info., Patient Portal Info Letter
--- NOTE | 2025-04-13 19:50 | XR_ITS ---
Examination: CT brain head without contrast. 2-D sagittal coronal reconstructions Date and time of exam:The April 13, 2025, 2020 hours INDICATIONS: Low blood pressure with syncopal episode today CTDI: vol (mGy):52.9 DLP: (mGycm):1146 Technique: Multiple CT axial sections of the brain have been obtained, 5 mm slice thickness. Contrast has not been administered. 2-D sagittal, coronal reconstructions have been obtained Low dose protocols were performed. One or more of the following dose reduction techniques were used; automated exposure control, adjustment of the mA and/or KV according to patient size, use of iterative reconstruction technique. Findings: Yanl-pe-dbyuynvj atrophy Intra-axial or extra-axial hemorrhage density is not seen. No mass effect or midline shift Basal cisterns are not remarkable. Fourth ventricle is midline. Cranial vault intact. Impression: Negative for acute hemorrhage, mass effect or midline shift
[2025-04-13] MEDS: SODIUM CHLORIDE 0.9% 1000 ML 1,000 ML 999 ML IV (20:36)
[2025-04-13] MEDS: cefTRIAXone/D5w 1gm IV premix 1 GM/50 ML BAG IV (20:37)
[2025-04-13 21:45] LABS: Sed Rate (ESR) 18 mm/hr (0-20)
[2025-04-13 22:10] LABS: Magnesium 2.2 mg/dL (1.6-2.6)
[2025-04-13 22:25] LABS: Lactic Acid, 3 HR 1.3 mMol/L (0.4-2.0)
[2025-04-13 22:31] VITALS: BP 100/73; PULSE 74; RESP 18; TEMP 36.4; O2SAT 95
[2025-04-13 23:24] LABS: C-Reactive Protein < 0.5 mg/dL (0.0-0.9)
[2025-04-14 01:01] VITALS: BP 118/64; PULSE 70; RESP 17
== END 2025-04-14 01:02 | disposition home or self-care (01) ==
PROVIDERS: Nurse Practitioner Primary Care; Emergency Provider Emergency Medicine; PCP Nurse Practitioner Family
DX: N39.0 Urinary tract infection, site not specified (principal); R06.02 Shortness of breath; I95.9 Hypotension, unspecified; R42 Dizziness and giddiness; I48.91 Unspecified atrial fibrillation; I25.10 Atherosclerotic heart disease of native coronary artery without angina pectoris; I11.0 Hypertensive heart disease with heart failure; I50.9 Heart failure, unspecified; I42.9 Cardiomyopathy, unspecified; Z95.2 Presence of prosthetic heart valve; Z85.46 Personal history of malignant neoplasm of prostate; Z79.82 Long term (current) use of aspirin; Z79.899 Other long term (current) drug therapy; Z79.52 Long term (current) use of systemic steroids; Z79.01 Long term (current) use of anticoagulants
CPT/HCPCS: 36415; 70450; 71046; 80053; 81001; 83605; 83735; 84145; 84484; 85025; 85652; 86140; 87040; 87086; 87400; 87811; 93005; 99283; J0696; J7030

== ENCOUNTER → 2025-05-12 | Outpatient (CLI) | payer MEDICARE, MEDICAID, SELFPAY ==
--- NOTE | 2025-05-12 13:00 | XR_ITS ---
Examination: Bone scan whole body, radioisotope Date and time of exam: April and 25 0843 hours, comparison January 22, 2024 INDICATIONS: Diagnosis malignant neoplasm prostate, prostatectomy November 2020 radiation therapy completed September 2021 Technique: Study has been performed with intravenous administration of 24.6 mci 99M technetium MDP. Anterior, posterior whole body images are obtained. Images have been obtained including the lower extremities. Findings: Progression of osseous metastatic disease, increased size left examination: Left RIBS, mid dorsal spine, mid and lower lumbar spine, left ischium More pronounced right hydronephrosis IMPRESSION: Progression of osseous metastatic disease Recommend plain films thoracic lumbar spine and AP pelvis follow-up
== END | disposition home or self-care (01) ==
LOC: SNUC 08:21
PROVIDERS: Referring Provider Internal Medicine Hematology & Oncology; Visit Provider Internal Medicine Hematology & Oncology
DX: C61 Malignant neoplasm of prostate (principal); C79.9 Secondary malignant neoplasm of unspecified site; C79.51 Secondary malignant neoplasm of bone
CPT/HCPCS: 78306; A9503

== ENCOUNTER 2025-05-15 13:28 | Outpatient (RCR) | payer MEDICARE, MEDICAID, SELFPAY | END 2025-05-23 23:59 | disposition home or self-care (01) | LOC: SCTC 13:28 | PROVIDERS: Referring Provider Internal Medicine Hematology & Oncology; Visit Provider Internal Medicine Hematology & Oncology | DX: Z51.11 Encounter for antineoplastic chemotherapy (principal); C61 Malignant neoplasm of prostate; C79.51 Secondary malignant neoplasm of bone; Z92.3 Personal history of irradiation | CPT/HCPCS: 96402; J9217 ==

== ENCOUNTER 2025-05-24 11:32 | Outpatient (RCR) | payer MEDICARE, MEDICAID, SELFPAY ==
--- NOTE | 2025-05-29 00:48 | CTCFLWUP_ITS ---
Patient: ELIAS ABURTO : 1945 Page 6 of 10 FOLLOW UP NOTE DATE OF SERVICE: 05/24/2025 NAME: ELIAS ABURTO ACCOUNT: [id number] : 1945 AGE: 80 INTERVAL HISTORY: Doing well. Last PSA 3.4. No new complaints and no new labs . 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 PSA is slowly increasing. 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 Robotic radical prostatectomy was done on 12/06/2020. Patient had radiation therapy to the prostate bed due to rising PSA completed on 10/07/2021. PET/CT scan done on 01/10/2022 showed osteoblastic bone mets. Started on adjuvant Lupron on 09/20/2021. Increasing PSA first noted on 06/25/2023. PSA 07/07/2024 is 0.21 01/12/2025 PSMA PET scan showed sclerotic bone lesions involving T9 T9 T11 and L2-L3 and L4 vertebral bodies and left ischial tuberosity are identified with increased radiotracer uptake, maximum SUV SUV of up to 32.4 compatible with a sclerotic bony metastasis #2 prostatectomy is noted no abnormal focal increased radiotracer uptake in the prostatic bladder bed or pelvis #3 no evidence of PSMA avid pulmonary hepatic or alana mets #4 compression fracture of L1 and L2 vertebrae with mild vertebral body height loss and anterior wedging of unknown chronicity REASON FOR TODAY?S VISIT: Patient is known prostate cancer. Patient is doing well. PSA to have decreased to 0.20. Currently Mr. Aburto is on leuprolide, Zometa, Zytiga and prednisone. Tolerating them very well without any significant side effects. PSA has decreased to 0.20. 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 07/26/2020: Mr. Aburto had prostate biopsy done for lower urinary tract symptoms as well as an elevated PSA of 31.5. 08/30/2020: Bone scan? 12/06/2020: Mr. Aburto had robotic radical prostatectomy with extended lymph node dissection at [facility] 03/19/2021: PSA 0.46 05/07/2021: PSA 0.52 07/15/2021: PSA 0.49 08/12/2021 - 10/07/2021: Mr. Aburto underwent radiation therapy to the prostate bed 09/11/2021: PSA 0.48 09/20/2021: Mr. Aburto received first dose of adjuvant Lupron 11/26/2021: PSA less than 0.10 01/10/2022: PET CT scan done 10/02/2022: PSA less than 0.10 04/08/2023: PSA less than 0.10. 06/25/2023: PSA 0.12. 10/06/2023: PSA 0.15. 10/20/2023 PSA 0.17. 10/29/2023: PET/CT scan?no interval metastatic disease. 11/17/2023: Mr. Aburto is started on Zytiga 1 g as well as prednisone 5 mg p.o. daily along with Zometa 4 mg IV every 3 months. 01/01/2024: PSA 0.18 01/22/2024: Bone scan done 01/26/2024: CT scan of the abdomen and pelvis with IV contrast 02/16/2024: PSA 0.28. 05/16/2024: PSA 0.20. OTHER MEDICAL HISTORY/CONDITIONS: Prostate cancer - dx 07/26/20 Siezures HTN Atrial fibrillation Denies FAMILY HISTORY: Cancer?History:?Denies Patient?denies?family?cancer?history. 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 abiraterone - 500 mg 2 tab Daily 2. atorvastatin - 20 mg Daily 3. carvedilol - 3.125 mg 1 tab Twice a Day 4. Citracal - 500 mg 1 tab Twice a Day 5. cyanocobalamin (vitamin B-12) - 1,000 mcg 1 tab Daily 6. furosemide - 20 mg 1 tab Twice a Day 7. Gemtesa - 75 mg 1 tab Daily 8. Keppra - 500 mg 2 tab Twice a Day 9. losartan - 25 mg 1 tab Daily 10. midodrine - 10 mg 1 tab As directed 11. prednisone - 5 mg 1 tab Daily 12. spironolactone - 25 mg 1 tab Daily 13. Vitamin D3 - 1,000 unit 1 tab Twice a Day 14. warfarin - 5 mg 1 tab Daily 15. warfarin - 4 mg 1 tab As directed Medications Last Reconciled by Tory Falcon MA on 04/13/2025 (Reconcile on Approval: ?) ALLERGIES: REVIEW OF SYSTEMS: A complete 14-point review of systems was performed and is negative except as noted in interval history. PHYSICAL EXAMINATION: VITAL SIGNS: PAIN: None ECOG Performance Status: None EYE: Conjunctivae is white MOUTH: Oral cavity is dry. CHEST: Clear to auscultation. No wheezes or rales audible. CARDIAC: Rhythm regular, no murmurs or gallops present. ABDOMEN: Soft. No hepatomegaly. No splenomegaly. EXTREMITIES: No pedal edema or cyanosis. LABORATORY DATA: I have personally reviewed and interpreted each of the patient?s relevant lab tests, abnormal findings are below: Date ASSESSMENT/PLAN: 1. Prostatic adenocarcinoma diagnosed on 08/22/2020 2. Robotic radical prostatectomy was done on 12/06/2020 3. Had radiation therapy to the prostate bed due to rising PSA completed on 10/07/[address] scan on 01/10/2022 showed osteoblastic bone lesions 5. Patient started on adjuvant Lupron on 09/20/2021 Increasing PSA first noted in June 2023 PSA has been less than 1 continue Lupron, Zytiga and prednisone for now continue Zometa 4 mg IV every 3 months. Continue Citracal. Patient has missed his Lupron injection which was due in December 2024 Sent a message to the clinical social work therapist as well as informed nurses to give appointment with Mr. Aburto to start Extensively counseled patient that he needs a Lupron injection every 3 months and need appointment Patient advised to continue Zytiga prednisone and Lupron Refer to tertiary center for Pluvicto or radium treatment Continue current therapy ORDERS: Order # Description Ordering Physician Date Condition Diagnosis Account Number Status Statused By (Full Name) Statused By (Initial) Status Date User Defined Data [id number] Jabier Graff 05/29/2025 refer to tertiary center for prostate cancer - medical oncology for xofigo or pluvicto (C61) Malignant neoplasm of prostate, (C79.51) Secondary malignant neoplasm of bone ? Approved Jabier Graff 05/29/2025 ? [id number] Jabier Graff 05/29/2025 send ngs panel on pathology 07/2021 for testing brca 1 and 2, micorosatellite instability (C61) Malignant neoplasm of prostate, (C79.51) Secondary malignant neoplasm of bone ? Approved Jabier Graff 05/29/2025 ? [id number] Comprehensive Metabolic Panel - 12 + CBC with Auto Diff + PSA Jabier Graff 05/29/2025 ? (C61) Malignant neoplasm of prostate, (C79.51) Secondary malignant neoplasm of bone ? Approved Jabier Graff 05/29/2025 ? [id number] Basic Metabolic Panel [facility] 07/01/2025 ? (C61) Malignant neoplasm of prostate ? Approved Jabier Graff 05/15/2025 ? [id number] Lab Appointment [facility] 07/01/2025 ? (C61) Malignant neoplasm of prostate ? Approved Jabier Graff 05/15/2025 ? [id number] Infusion 1 Hour [facility] 07/02/2025 ? (C61) Malignant neoplasm of prostate ? Approved Jabier Graff 05/15/2025 ? [id number] Basic Metabolic Panel [facility] 09/29/2025 ? (C61) Malignant neoplasm of prostate ? Pending ? [id number] Lab Appointment [facility] 09/29/2025 ? (C61) Malignant neoplasm of prostate ? Pending ? [id number] Infusion 1 Hour [facility] 09/30/2025 ? (C61) Malignant neoplasm of prostate ? Pending ? [id number] Basic Metabolic Panel [facility], [facility] 12/28/2025 ? (C61) Malignant neoplasm of prostate ? Pending ? [id number] Lab Appointment [facility] 12/28/2025 ? (C61) Malignant neoplasm of prostate ? Pending ? [id number] Infusion 1 Hour [facility], O[facility] 12/29/2025 ? (C61) Malignant neoplasm of prostate ? Pending ? [id number] Basic Metabolic Panel [facility], [facility] 03/28/2026 ? (C61) Malignant neoplasm of prostate ? Pending ? [id number] Lab Appointment [facility], [facility] 03/28/2026 ? (C61) Malignant neoplasm of prostate ? Pending ? [id number] Infusion 1 Hour [facility], O[facility] 03/29/2026 ? (C61) Malignant neoplasm of prostate ? Pending ? [id number] Basic Metabolic Panel [facility], [facility] 06/26/2026 ? (C61) Malignant neoplasm of prostate ? Pending ? [id number] Lab Appointment [facility], [facility] 06/26/2026 ? (C61) Malignant neoplasm of prostate ? Pending ? [id number] Infusion 1 Hour [facility], O[facility] 06/27/2026 ? (C61) Malignant neoplasm of prostate ? Pending ? [id number] Basic Metabolic Panel [facility]ERN, OMEGA 09/24/2026 ? (C61) Malignant neoplasm of prostate ? Pending ? [id number] Lab Appointment VERNE[facility] STANLEYTA 09/24/2026 ? (C61) Malignant neoplasm of prostate ? Pending ? [id number] Infusion 1 Hour E[facility]EN PORRASTA 09/25/2026 ? (C61) Malignant neoplasm of prostate ? Pending ? [id number] Basic Metabolic Panel [facility]EN PORRASTA 12/23/2026 ? (C61) Malignant neoplasm of prostate ? Pending ? [id number] Lab Appointment [facility] 12/23/2026 ? (C61) Malignant neoplasm of prostate ? Pending ? RETURN TO CLINIC: I reviewed the diagnosis, prognosis, and recommended treatment/procedure options with the patient (and/or their legal physician relations representative), including the potential benefits, risks, side effects and alternative therapies. We also discussed the option of no treatment and the possibility of clinical trial participation, if applicable. All questions were addressed, and they demonstrated understanding. They provided informed consent to proceed with the proposed plan of care. BILLING AND COMPLIANCE: I reviewed external records from providers outside my specialty as summarized above. I spent a total of 50 minutes on this patient?s care on the day of their visit excluding time spent related to any billed procedures. This time includes time spent with the patient as well as time spent documenting in the medical record, reviewing patients records and tests, obtaining history, placing orders, communicating with other healthcare professionals, counseling the patient, family or caregiver, and/or care coordination for the diagnoses above. Electronically Signed by: {Object.Sanct_ID*PnP.NameFL@M}, {Object.Sanct_ID*PnP.Suffix@U} D: {Object.Sanct_Date} T: {Object.Sanct_Time} CC: Vinnie?Lillie?(pixleycl),? PCP: Jabier Graff Referring: Jabier Graff This document was completed utilizing speech recognition software. Grammatical errors, random word insertions, pronoun errors, and incomplete sentences are an occasional consequence of this system due to software limitations, ambient noise, and hardware issues. Any formal questions or concerns about the content, text or information contained within the body of this dictation should be directly addressed to the provider for clarification.
== END 2025-06-23 23:59 | disposition home or self-care (01) ==
LOC: SCTC 11:32
PROVIDERS: PCP Nurse Practitioner Family; Referring Provider Internal Medicine Hematology & Oncology; Visit Provider Internal Medicine Hematology & Oncology
DX: C61 Malignant neoplasm of prostate (principal); C79.51 Secondary malignant neoplasm of bone; Z19.2 Hormone resistant malignancy status; Z90.79 Acquired absence of other genital organ(s); Z92.3 Personal history of irradiation; Z79.818 Long term (current) use of other agents affecting estrogen receptors and estrogen levels
CPT/HCPCS: 99212; G0463

== ENCOUNTER → 2025-06-05 | Outpatient (CLI) | payer MEDICARE, MEDICAID, SELFPAY ==
[2025-06-05 13:19] LABS: Basophils # (Auto) 0.0 Thou/mm3 (0.0-0.2); Basophils % (Auto) 0 % (0-2.5); Eosinophils # (Auto) 0.1 Thou/mm3 (0.0-0.5); Eosinophils % (Auto) 1 % (0-10); Hematocrit 36.8 % (41.0-53.0); Hemoglobin 12.1 g/dL (13.5-16.0); Immature Granulocytes Auto 0.05 Thou/mm3 (0.00-0.00); Lymphocytes # (Auto) 1.2 Thou/mm3 (1.0-4.8); Lymphocytes % (Auto) 12 % (10-50); Mean Corpuscular HGB Conc 32.9 g/dl (31.0-37.0); Mean Corpuscular Hemoglobin 29.2 pg (25.0-35.0); Mean Corpuscular Volume 89 fL (80-100); Monocytes # (Auto) 0.8 Thou/mm3 (0.0-0.8); Monocytes % (Auto) 8 % (0-12); Neutrophils # (Auto) 8.1 Thou/mm3 (1.8-7.7); Neutrophils % (Auto) 78 % (37-80); Nucleated Red Blood Cell # 0.00 Thou/mm3 (0.00-0.00); Nucleated Red Blood Cell % 0 /100 WBC (0); Platelet Count 289 Thou/mm3 (140-440); RDW Standard Deviation 44.6 fL (35.1-43.9); Red Blood Count 4.14 Miln/mm3 (4.50-5.90); White Blood Count 10.4 Thou/mm3 (3.8-10.6)
[2025-06-05 13:35] LABS: Alanine Aminotransferase 15 U/L (10-49); Albumin, Serum 4.6 gm/dL (3.4-4.8); Albumin/Globulin Ratio 1.5 (1.2-2.2); Alkaline Phosphatase 106 U/L (46-116); Anion Gap 12 (7-16); Aspartate Amino Transferase 20 U/L (0-34); BUN/Creatinine Ratio 13 Ratio (12-20); Bilirubin,Total 0.8 mg/dL (0.3-1.2); Blood Urea Nitrogen 19 mg/dL (9-23); Calcium 10.8 mg/dL (8.3-10.6); Calcium (Corrected) 10.8 mg/dL (8.5-10.1); Carbon Dioxide 31.3 mMol/L (20.0-31.0); Chloride 96 mMol/L (98-107); Creatinine (Component) 1.5 mg/dL (0.6-1.3); Globulin 3.0 gm/dL (2.3-3.5); Glucose 108 mg/dL (74-106); Osmolality,Calculated 280 (275-295); Potassium 3.5 mMol/L (3.4-5.1); Sodium 139 mMol/L (136-145); Total Protein 7.6 gm/dL (5.7-8.2); eGFR 47 See Note
[2025-06-05 14:22] LABS: Prostate Specific Antigen 5.08 ng/mL (0-4.00)
== END | disposition home or self-care (01) ==
LOC: COPL 12:12
PROVIDERS: PCP Nurse Practitioner Family; Referring Provider Internal Medicine Hematology & Oncology; Visit Provider Internal Medicine Hematology & Oncology
DX: C61 Malignant neoplasm of prostate (principal); C79.51 Secondary malignant neoplasm of bone
CPT/HCPCS: 36415; 80053; 84153; 85025

== ENCOUNTER → 2025-06-05 | Outpatient (BNVA) | payer MEDICARE, MEDICAID, SELFPAY | END | disposition home or self-care (01) | PROVIDERS: PCP Nurse Practitioner Family; Referring Provider Nurse Practitioner Family; Visit Provider Urology | DX: C61 Malignant neoplasm of prostate (principal); Z92.3 Personal history of irradiation; N13.30 Unspecified hydronephrosis; M89.9 Disorder of bone, unspecified | CPT/HCPCS: 99212; G0463 ==

== ENCOUNTER 2025-07-03 12:55 | Outpatient (RCR) | payer MEDICARE, MEDICAID, SELFPAY | END 2025-07-23 23:59 | disposition home or self-care (01) | LOC: SCTC 12:55 | PROVIDERS: PCP Nurse Practitioner Family; Referring Provider Nurse Practitioner Family; Visit Provider Internal Medicine Hematology & Oncology | DX: C61 Malignant neoplasm of prostate (principal); C79.51 Secondary malignant neoplasm of bone; Z79.818 Long term (current) use of other agents affecting estrogen receptors and estrogen levels; Z90.79 Acquired absence of other genital organ(s); Z92.3 Personal history of irradiation | CPT/HCPCS: 96365; J3489; J7040 ==

== ENCOUNTER → 2025-07-18 | Outpatient (CLI) | payer MEDICARE, MEDICAID, SELFPAY ==
[2025-07-18 10:38] LABS: Basophils # (Auto) 0.0 Thou/mm3 (0.0-0.2); Basophils % (Auto) 1 % (0-2.5); Eosinophils # (Auto) 0.2 Thou/mm3 (0.0-0.5); Eosinophils % (Auto) 3 % (0-10); Hematocrit 40.9 % (41.0-53.0); Hemoglobin 13.2 g/dL (13.5-16.0); Immature Granulocytes Auto 0.01 Thou/mm3 (0.00-0.00); Lymphocytes # (Auto) 1.0 Thou/mm3 (1.0-4.8); Lymphocytes % (Auto) 17 % (10-50); Mean Corpuscular HGB Conc 32.3 g/dl (31.0-37.0); Mean Corpuscular Hemoglobin 28.1 pg (25.0-35.0); Mean Corpuscular Volume 87 fL (80-100); Monocytes # (Auto) 0.7 Thou/mm3 (0.0-0.8); Monocytes % (Auto) 11 % (0-12); Neutrophils # (Auto) 4.2 Thou/mm3 (1.8-7.7); Neutrophils % (Auto) 69 % (37-80); Nucleated Red Blood Cell # 0.00 Thou/mm3 (0.00-0.00); Nucleated Red Blood Cell % 0 /100 WBC (0); Platelet Count 290 Thou/mm3 (140-440); RDW Standard Deviation 43.6 fL (35.1-43.9); Red Blood Count 4.70 Miln/mm3 (4.50-5.90); White Blood Count 6.2 Thou/mm3 (3.8-10.6)
[2025-07-18 10:50] LABS: Alanine Aminotransferase 11 U/L (10-49); Albumin, Serum 5.0 gm/dL (3.4-4.8); Albumin/Globulin Ratio 1.5 (1.2-2.2); Anion Gap 12 (7-16); Aspartate Amino Transferase 26 U/L (0-34); BUN/Creatinine Ratio 13 Ratio (12-20); Bilirubin,Total 0.8 mg/dL (0.3-1.2); Blood Urea Nitrogen 22 mg/dL (9-23); Calcium 11.7 mg/dL (8.3-10.6); Calcium (Corrected) 11.7 mg/dL (8.5-10.1); Carbon Dioxide 31.1 mMol/L (20.0-31.0); Chloride 97 mMol/L (98-107); Creatinine (Component) 1.7 mg/dL (0.6-1.3); Globulin 3.3 gm/dL (2.3-3.5); Glucose 125 mg/dL (74-106); Osmolality,Calculated 283 (275-295); Potassium 3.6 mMol/L (3.4-5.1); Sodium 140 mMol/L (136-145); Total Protein 8.3 gm/dL (5.7-8.2); eGFR 40 See Note
[2025-07-18 11:20] LABS: Alkaline Phosphatase 135 U/L (46-116)
[2025-07-18 12:49] LABS: Prostate Specific Antigen 8.55 ng/mL (0-4.00)
== END | disposition home or self-care (01) ==
PROVIDERS: PCP Internal Medicine Hematology & Oncology; Referring Provider Internal Medicine Hematology & Oncology; Visit Provider Internal Medicine Hematology & Oncology
DX: C61 Malignant neoplasm of prostate (principal); C79.51 Secondary malignant neoplasm of bone
CPT/HCPCS: 36415; 80053; 84153; 85025

== ENCOUNTER → 2025-07-25 | Outpatient (CLI) | payer MEDICARE, MEDICAID, SELFPAY ==
[2025-07-25 10:07] LABS: Basophils # (Auto) 0.0 Thou/mm3 (0.0-0.2); Basophils % (Auto) 1 % (0-2.5); Eosinophils # (Auto) 0.1 Thou/mm3 (0.0-0.5); Eosinophils % (Auto) 1 % (0-10); Hematocrit 40.4 % (41.0-53.0); Hemoglobin 13.1 g/dL (13.5-16.0); Immature Granulocytes Auto 0.04 Thou/mm3 (0.00-0.00); Lymphocytes # (Auto) 1.4 Thou/mm3 (1.0-4.8); Lymphocytes % (Auto) 17 % (10-50); Mean Corpuscular HGB Conc 32.4 g/dl (31.0-37.0); Mean Corpuscular Hemoglobin 27.9 pg (25.0-35.0); Mean Corpuscular Volume 86 fL (80-100); Monocytes # (Auto) 0.7 Thou/mm3 (0.0-0.8); Monocytes % (Auto) 9 % (0-12); Neutrophils # (Auto) 5.7 Thou/mm3 (1.8-7.7); Neutrophils % (Auto) 71 % (37-80); Nucleated Red Blood Cell # 0.00 Thou/mm3 (0.00-0.00); Nucleated Red Blood Cell % 0 /100 WBC (0); Platelet Count 348 Thou/mm3 (140-440); RDW Standard Deviation 43.6 fL (35.1-43.9); Red Blood Count 4.69 Miln/mm3 (4.50-5.90); White Blood Count 8.0 Thou/mm3 (3.8-10.6)
[2025-07-25 12:51] LABS: Alanine Aminotransferase 20 U/L (10-49); Albumin, Serum 5.1 gm/dL (3.4-4.8); Albumin/Globulin Ratio 1.3 (1.2-2.2); Alkaline Phosphatase 149 U/L (46-116); Anion Gap 11 (7-16); Aspartate Amino Transferase < 8 U/L (0-34); BUN/Creatinine Ratio 16 Ratio (12-20); Bilirubin,Total 0.9 mg/dL (0.3-1.2); Blood Urea Nitrogen 26 mg/dL (9-23); Calcium 10.3 mg/dL (8.3-10.6); Calcium (Corrected) 10.3 mg/dL (8.5-10.1); Carbon Dioxide 27.0 mMol/L (20.0-31.0); Chloride 99 mMol/L (98-107); Creatinine (Component) 1.6 mg/dL (0.6-1.3); Globulin 3.8 gm/dL (2.3-3.5); Glucose 103 mg/dL (74-106); Osmolality,Calculated 278 (275-295); Potassium 3.8 mMol/L (3.4-5.1); Sodium 137 mMol/L (136-145); Total Protein 8.9 gm/dL (5.7-8.2); eGFR 43 See Note
[2025-07-25 13:24] LABS: Prostate Specific Antigen 8.33 ng/mL (0-4.00)
== END | disposition home or self-care (01) ==
LOC: SCTO 08:50
PROVIDERS: PCP Nurse Practitioner Family; Referring Provider Internal Medicine Hematology & Oncology; Visit Provider Internal Medicine Hematology & Oncology
DX: C61 Malignant neoplasm of prostate (principal); C79.51 Secondary malignant neoplasm of bone
CPT/HCPCS: 36415; 80053; 84153; 85025

== ENCOUNTER 2025-08-02 09:44 | Outpatient (RCR) | payer MEDICARE, MEDICAID, SELFPAY ==
--- NOTE | 2025-08-21 05:20 | CTCFLWUP_ITS ---
Patient: ELIAS BUENO : 1945 Page 7 of 7 FOLLOW UP NOTE DATE OF SERVICE: 08/02/2025 NAME: ELIAS BUENO ACCOUNT: [id number] : 1945 AGE: 80 INTERVAL HISTORY: Patient is on Lupron Zytiga and prednisone. Not want to chemotherapy. Patient's PSA has been worsening. Patient's last Lupron shot was in April 2025. Patient delayed his shot in January 2025 but since then is compliant. PSA is at 8. 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 PSA is slowly increasing. 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 Robotic radical prostatectomy was done on 12/06/2020. Patient had radiation therapy to the prostate bed due to rising PSA completed on 10/07/2021. PET/CT scan done on 01/10/2022 showed osteoblastic bone mets. Started on adjuvant Lupron on 09/20/2021. Increasing PSA first noted on 06/25/2023. PSA 07/07/2024 is 0.21 01/12/2025 PSMA PET scan showed sclerotic bone lesions involving T9 T9 T11 and L2-L3 and L4 vertebral bodies and left ischial tuberosity are identified with increased radiotracer uptake, maximum SUV SUV of up to 32.4 compatible with a sclerotic bony metastasis #2 prostatectomy is noted no abnormal focal increased radiotracer uptake in the prostatic bladder bed or pelvis #3 no evidence of PSMA avid pulmonary hepatic or alana mets #4 compression fracture of L1 and L2 vertebrae with mild vertebral body height loss and anterior wedging of unknown chronicity REASON FOR TODAY?S VISIT: Patient is known prostate cancer. Patient is doing well. PSA to have decreased to 0.20. Currently Mr. Bueno is on leuprolide, Zometa, Zytiga and prednisone. Tolerating them very well without any significant side effects. PSA has decreased to 0.20. Malignant neoplasm of prostate [ICD10] C61; Secondary malignant neoplasm of bone [ICD10] C79.51 DATE OF DIAGNOSIS: 08/12/2020 STAGE/TNM: Limited stage prostate cancer Presumed stage IV in 2021 and started on Zytiga and Lupron prednisone No biopsy done of the bone lesion to prove metastatic disease TREATMENT HISTORY: Care?Plan Start?Date Cycle Day Intent Zoledronic?Acid?4?mg 01/07/2024 1 90 Palliative Lupron?22.5?mg?q?3?mon 02/09/2025 1 90 Maintenance HISTORY OF PRESENT ILLNESS: Elias Bueno is a 80-year-old ENG speaking male with following oncology history. 07/26/2020: Mr. Bueno had prostate biopsy done for lower urinary tract symptoms as well as an elevated PSA of 31.5. 08/30/2020: Bone scan? 12/06/2020: Mr. Bueno had robotic radical prostatectomy with extended lymph node [facility] at [facility] 03/19/2021: PSA 0.46 05/07/2021: PSA 0.52 07/15/2021: PSA 0.49 08/12/2021 - 10/07/2021: Mr. Bueno underwent radiation therapy to the prostate bed 09/11/2021: PSA 0.48 09/20/2021: Mr. Bueno received first dose of adjuvant Lupron 11/26/2021: PSA less than 0.10 01/10/2022: PET CT scan done 10/02/2022: PSA less than 0.10 04/08/2023: PSA less than 0.10. 06/25/2023: PSA 0.12. 10/06/2023: PSA 0.15. 10/20/2023 PSA 0.17. 10/29/2023: PET/CT scan?no interval metastatic disease. 11/17/2023: Mr. Bueno is started on Zytiga 1 g as well as prednisone 5 mg p.o. daily along with Zometa 4 mg IV every 3 months. 01/01/2024: PSA 0.18 01/22/2024: Bone scan done 01/26/2024: CT scan of the abdomen and pelvis with IV contrast 02/16/2024: PSA 0.28. 05/16/2024: PSA 0.20. OTHER MEDICAL HISTORY/CONDITIONS: Prostate cancer - dx 07/26/20 Siezures HTN Atrial fibrillation Denies FAMILY HISTORY: Cancer?History:?Denies Patient?denies?family?cancer?history. 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 abiraterone - 500 mg 2 tab Daily 2. atorvastatin - 20 mg Daily 3. carvedilol - 3.125 mg 1 tab Twice a Day 4. Citracal - 500 mg 1 tab Twice a Day 5. cyanocobalamin (vitamin B-12) - 1,000 mcg 1 tab Daily 6. furosemide - 20 mg 1 tab Twice a Day 7. Gemtesa - 75 mg 1 tab Daily 8. Keppra - 500 mg 2 tab Twice a Day 9. losartan - 25 mg 1 tab Daily 10. midodrine - 10 mg 1 tab As directed 11. potassium - 20 mg 1 tab Daily 12. prednisone - 5 mg 1 tab Daily 13. spironolactone - 25 mg 1 tab Daily 14. Vitamin D3 - 1,000 unit 1 tab Twice a Day 15. warfarin - 5 mg 1 tab Daily 16. warfarin - 4 mg 1 tab As directed Medications Last Reconciled by Tory Long MD on 08/02/2025 ALLERGIES: No Known Drug Allergies REVIEW OF SYSTEMS: A complete 14-point review of systems was performed and is negative except as noted in interval history. PHYSICAL EXAMINATION: VITAL SIGNS: Temperature?97.2, B/P?108/74, Oxygen?Saturation?98% Weight?195?lbs (Change?since?07/03/25:?1?lbs) PAIN: 0 - No pain ECOG Performance Status: 0 - Asymptomatic and fully active EYE: Conjunctivae is white MOUTH: Oral cavity is dry. CHEST: Clear to auscultation. No wheezes or rales audible. CARDIAC: Rhythm regular, no murmurs or gallops present. ABDOMEN: Soft. No hepatomegaly. No splenomegaly. EXTREMITIES: No pedal edema or cyanosis. LABORATORY DATA: I have personally reviewed and interpreted each of the patient?s relevant lab tests, abnormal findings are below: Date 07/18/25 07/25/25 ??WHITE?BLOOD?COUNT?(Thou/mm3) 6.2 8.0 ??RED?BLOOD?COUNT?(Miln/mm3) 4.70 4.69 ??HEMOGLOBIN?(gm/dl) 13.2?L 13.1?L ??HEMATOCRIT?(%) 40.9?L 40.4?L ??PLATELET?COUNT?(Thou/mm3) 290 348 ??NEUTROPHILS?%,?AUTO?(%) 69 71 ??LYMPH?%,?AUTO?(%) 17 17 ??NEUTROPHILS,?AUTO?(Thou/mm3) 4.2 5.7 ??GLUCOSE,RANDOM?(mg/dL) 125?H 103 ??BLOOD?UREA?NITROGEN?(mg/dL) 22 26?H ??CREATININE?(mg/dL) 1.70?H 1.60?H ??SODIUM?(mmol/L) 140 137 ??POTASSIUM?(mmol/L) 3.6 3.8 ??CHLORIDE?(mmol/L) 97?L 99 ??CrCl?(CandG)?(ml/min) 37.02 39.33 ??AST/SGOT?(Unit/L) 26 <?8 ??ALT/SGPT?(Unit/L) 11 20 ??ALKALINE?PHOSPHATASE?(Unit/L) 135?H 149?H ??BILIRUBIN,?TOTAL?(mg/dL) 0.8 0.9 ??PROTEIN?TOTAL?(gm/dl) 8.3?H 8.9?H ??ALBUMIN,?SERUM?(gm/dl) 5.0?H 5.1?H ??GLOBULIN?(gm/dl) 3.3 3.8?H ??ALBUMIN/GLOBULIN?RATIO 1.5 1.3 ??CALCIUM,?SERUM?(mg/dL) 11.7?H 10.3 ??CALCIUM?SERUM?(CORRECTED)?(mg/dL) 11.7?H 10.3?H ASSESSMENT/PLAN: 1. Prostatic adenocarcinoma diagnosed on 08/22/2020 2. Robotic radical prostatectomy was done on 12/06/2020 3. Had radiation therapy to the prostate bed due to rising PSA completed on 10/07/[address] scan on 01/10/2022 showed osteoblastic bone lesions 5. Patient started on adjuvant Lupron on 09/20/2021 Increasing PSA first noted in June 2023 PSA has been less than 1 continue Lupron, Zytiga and prednisone for now continue Zometa 4 mg IV every 3 months. Continue Citracal. Patient has missed his Lupron injection which was due in December 2024 Patient since then have resumed his treatment. Patient advised to continue Zytiga prednisone and Lupron Patient advised [facility] ORDERS: Order # Description [id number] Comprehensive Metabolic Panel - 12 + CBC with Auto Diff + PSA [id number] Follow Up 2 Months RETURN TO CLINIC: I reviewed the diagnosis, prognosis, and recommended treatment/procedure options with the patient (and/or their legal outside sales representative), including the potential benefits, risks, side effects and alternative therapies. We also discussed the option of no treatment and the possibility of clinical trial participation, if applicable. All questions were addressed, and they demonstrated understanding. They provided informed consent to proceed with the proposed plan of care. BILLING AND COMPLIANCE: I reviewed external records from providers outside my specialty as summarized above. I spent a total of 50 minutes on this patient?s care on the day of their visit excluding time spent related to any billed procedures. This time includes time spent with the patient as well as time spent documenting in the medical record, reviewing patients records and tests, obtaining history, placing orders, communicating with other healthcare professionals, counseling the patient, family or caregiver, and/or care coordination for the diagnoses above. Electronically Signed by: {Object.Sanct_ID*PnP.NameFL@M}, {Object.Sanct_ID*PnP.Suffix@U} D: {Object.Sanct_Date} T: {Object.Sanct_Time} CC: Vinnie?Lillie?([email or web address]),? PCP: Shantelle Beck Referring: Shantelle Beck This document was completed utilizing speech recognition software. Grammatical errors, random word insertions, pronoun errors, and incomplete sentences are an occasional consequence of this system due to software limitations, ambient noise, and hardware issues. Any formal questions or concerns about the content, text or information contained within the body of this dictation should be directly addressed to the provider for clarification.
== END 2025-08-23 23:59 | disposition home or self-care (01) ==
LOC: SCTC 09:44
PROVIDERS: PCP Nurse Practitioner Family; Referring Provider Nurse Practitioner Family; Visit Provider Internal Medicine Hematology & Oncology
DX: C61 Malignant neoplasm of prostate (principal); C79.51 Secondary malignant neoplasm of bone; Z19.2 Hormone resistant malignancy status; Z90.79 Acquired absence of other genital organ(s); Z79.818 Long term (current) use of other agents affecting estrogen receptors and estrogen levels
CPT/HCPCS: 99212; G0463